=== PATIENT | male | born 1950 | race Caucasian/White ===

== ENCOUNTER 2023-12-28 10:32 | Emergency (ER) | payer MEDICARE, OTHER ==
--- OUTSIDE RECORDS SUMMARY | 2023-12-28 10:34 | XMS REPORT | Continuity of Care Document ---
Author Name Unknown Address [address] [place] [address] [facility] Address 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 Name Role Phone [place], [facility] Primary Car e Physician Piyush Santiago MD Attending Clinician [phone] NEVAEH COLLINS Attending Clinician Unavailab PIYUSH Story Attending Clinician Unavailable Doctor Unassigned, [place] Attending Clinician U Annika May Attending Clinician [phone] Irma-Mbayo_A_AH Attending Clinician Unavailable Irma-Mbayo_A_AH Admitting Clinician Unavailable Payers Payer Name Policy Type Policy Number Effective Date Expirati on Date Source [employer] (MEDICARE REPLACEMENT HMO) [id number] 2021 00:00:00 [facility] (MEDICARE REPLACEMENT/[place] GE - HMO) [id number] 0176-01-01 00:00:00 Allergies, Adverse Reactions, Alerts Allergy Name Allergy Type Status Severity Reaction(s) Onset Date Inactive Date Treating Clinician Comments Source NO KNOWN ALLERGIE S Drug Class Active [facility] Social History Social Habit Start Date Stop Date Quantity Comments Source Sexual orientation U [facility] Sex assigned at 1950 00:00:00 1950 00:00:00 [facility] Smoking Status Start Date Stop Date Source Tobacco smoking consumption unknown [facility] Medications Ordered Medication Name Filled Medication Name Start Date Stop Date Current Medication? Ordering Clinician Indication Dosage Frequency Signature (SIG) Comments Components Source meloxicam 15 mg tablet 6- 00:00: 00 Yes [id number] 15mg Take 1 tablet by mouth in the morning. [facility] meloxicam 15 mg tablet 05-01 00:00: 00 08-18 00:00 :00 No [id number] 15mg Take 1 tablet by mouth in the morning. [facility] amitriptyli ne 25 mg tablet 05-01 00:00: 00 07-30 04:59 :00 No [id number] 25mg Take 1 tablet by mouth at bedtime for 90 days. [facility] lidocain-me .salicyl-ca ps-menth (1ST MEDX-PATCH WITH LIDOCAINE) 4-20-0.025- 5 % PtMd 05-01 00:00: 00 06-30 04:59 :00 No [id number] 1{patch } Apply 1 Patch to area(s) in the morning and 1 Patch in the evening. Do all this for 60 days. [facility] Vital Signs Vital Name Observation Time Observation Value Comments S our Systolic blood pressure 2023-05-01 17:14:00 133 mm[Hg] [facility] Diastolic blood pressure 2023-05-01 17:14:00 76 mm[Hg] [facility] Heart rate 2023-05-01 17:14:00 74 /min [facility] Respiratory rate 2023-05-01 17:14:00 16 /min [facility] Body height 2023-05-01 17:14:00 172.7 cm [facility] Body weight 2023-05-01 17:14:00 49.714 kg [facility] BMI 2023-05-01 17:14:00 16.66 kg/m2 [facility] Oxygen saturation in Arterial blood by Pulse oximetry 2023-05-01 17:14:00 98 /min [facility] Procedures Procedure Date / Time Performed Performing Clinicia n Source ASSIGNMENT OF BENEFITS 2023-05-01 16:29:11 Docto r Unassigned, [place] [facility] Encounters Start Date/Time End Date/Time Encounter Type Admission Type Attending [facility] Care Facility Care Department Encounter ID Source 2023-08-19 00:00:00 2023-08-20 11:39:02 Piyush Chaney [facility] [id number] [facility] 2023-05-01 11:15:00 2023-05-01 12:00:00 Office Visit Piyush Santiago [facility] [id number] [facility] 2023-05-01 11:15:00 2023-05-01 11:15:00 Outpatient R PIYUSH SANTIAGO [facility] [id number] [facility] 2023-05-01 00:00:00 2023-05-01 00:00:00 Orders Only Doctor Unassigned, [place] [facility] [id number] [facility] 2023-02-06 17:00:00 2023-02-06 18:00:00 Arnol Babin [id number] 2021-09-22 03:05:00 2021-09-22 03:05:00 Outpatient DMG DMG [id number] [facility] 2021-09-22 00:00:00 2021-09-22 00:00:00 Outpatient DMG DMG [id number] [facility] 2021-02-12 08:00:00 2021-02-12 08:00:00 Outpatient DMG DMG [id number] [facility] 2019-04-29 07:17:00 2019-04-29 07:17:00 Outpatient Irma-Hamilton _A_AH VFP VFP [id number] [facility] e Notes Date/Time Note Provider Source 2023-08-20 11:15:43 Refill request routed to provider for review: HARPREET 05/01/23 NOV not scheduled, will send to PSS to schedule Last Ordered 05/01/23 Labs none listed Requested Prescriptions Pending Prescriptions Disp Refills meloxicam 15 mg tablet 30 tablet 2 Sig: Take 1 tablet by mouth in the morning. There is no refill protocol information for this order Recent Visits Date Type Provider Dept 05/01/23 Office Visit Piyush Santiago MD [facility] Showing recent visits within past 365 days and meeting all other requirements Future Appointments No visits were found meeting these conditions. Showing future appointments within next 365 days and meeting all other requirements No visits with results within 6 Month(s) from this visit. Latest known visit with results is: No results found for any previous visit. ICD-10-CM 1. Pain in joint, multiple sites M25.50 Please advise. Roseann Bailey RN 08/20/2023 11:15 AM T Roseann Bailey RN [facility] 2023-08-19 11:32:42 Ej Acosta is a 73 year old male [employer] calling about a refill on the meloxicam 15 mg tablet. Pls advise, thanks. [facility] [employer]
--- NOTE | 2023-12-28 11:34 | RAD REPORT ---
EXAMINATION: CT HEAD WITHOUT CONTRAST CT CERVICAL SPINE WITHOUT CONTRAST CLINICAL INDICATION: Head and neck injury status post fall. Head and neck pain TECHNIQUE: Axial CT images from the skull base to the vertex without intravenous contrast. Axial CT i mages through the cervical spine were obtained without intravenous contrast. Sagittal and coronal reformatted images were created from the data set. Coronal and sagittal reformatted images were creat ed from the data set. One or more of the following dose reduction techniques were used: Automated exposure control, adjustment of the mA and/or kV according to patient size, and/or iterative reconstr uction. Unless otherwise specified, incidental findings do not require dedicated imaging follow-up. [id number]. Comparison: none FINDINGS: Intracranial bleed not noted. Ventricles are normal in caliber. No significant hypodensity within the brain No extra-axial fluid collection. Opacification left mastoids No fracture or dislocation is seen involving the cervical spine. Spondylosis most marked at C5-C6 results in mild central and moderate bilateral foraminal stenosis. IMPRESSION: No acute intracranial abnormality noted Opacification left mastoids may indicate mastoiditis A cervical fracture is not seen. 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
--- NOTE | 2023-12-28 11:49 | RAD REPORT ---
Procedure: Chest Single View HISTORY: Chest pain COMPARISON: none FINDINGS: 3.3 cm lobulated opacity left upper hemithorax. It appears partially calcified. Bilateral pleural calcified plaques. Right lung appears clear of acute infiltrate. No significant pleural effusion noted. The heart is normal size. IMPRESSION: 3.3 cm lobulated opacity left upper hemithorax. It probably is a pleural plaque. Follow-up x-ray in o ne month recommended for reevaluation
[2023-12-28 11:54] LABS: Absolute Basophils 0.1 K/uL (0-0.5); Absolute Eosinophils 0.4 K/uL (0-0.5); Absolute Lymphocytes (CBC) 1.4 K/uL (0.7-4.9); Absolute Monocytes 0.5 K/uL (0.1-1.3); Absolute Neutrophil 4.7 K/uL (1.8-8.0); Basophils % 1.1 % (0-1.3); Eosinophils % 6.1 % (0-4.4); Hemoglobin 11.4 g/dL (13.6-17.9); Lymphocytes % 20.2 % (15.3-44.8); MCHC 32.6 g/dL (32.0-36.0); MCV 98.2 fL (80-100); MPV 8.8 fL (7.6-11.3); Neutrophils % 65.6 % (41.7-73.7); Platelets 271 thou/uL (152-406); RBC Red Blood Cell Count 3.56 M/uL (4.33-5.43); Red Cell Distribution Width 14.6 % (12.1-15.2)
[2023-12-28 12:02] LABS: PT Prothrombin Time 10.4 SECONDS (9.4-12.5); Protime INR 0.93
[2023-12-28 12:18] LABS: ALT/SGPT 88 U/L (16-61); AST/SGOT 222 U/L (15-37); Albumin 3.4 g/dL (3.4-5.0); Albumin/Globulin Ratio 0.9 (1.1-1.8); Alkaline Phosphatase 73 U/L (45-117); Anion Gap 7.8 mEq/L (5.0-15.0); BUN Blood Urea Nitrogen 25 mg/dL (7-18); Bicarbonate 30 mEq/L (21-32); Bilirubin Total 0.3 mg/dL (0.2-1.0); Globulin 3.9 g/dL (2.3-3.5); Glomerular Filtration Rate 92 ml/min (=/>90); Glucose Level 92 mg/dL (74-106); Magnesium 1.9 mg/dL (1.6-2.4); Potassium 3.8 mEq/L (3.5-5.1); Protein, Total 7.3 g/dL (6.4-8.2); Sodium Level 139 mEq/L (136-145); Troponin High Sensitivity 28.5 pg/mL (<58.9)
[2023-12-28 12:19] LABS: Bilirubin Direct < 0.2 mg/dL (0-0.2); Bilirubin Indirect, Calculated 0.1 mg/dL (0.2-0.8)
[2023-12-28] MEDS ORDERED: NA CHLORIDE 0.9% 1,000 ML ONE (12:23)
[2023-12-28 14:42] LABS: Specific Gravity 1.022 (1.005-1.030); Sqamous Epithelial None Seen /HPF (None Seen); Urine Bacteria None Seen /HPF (<20); Urine Bilirubin NEGATIVE (Negative); Urine Blood Negative (Negative); Urine Clarity Clear (Clear); Urine Color Light-Yellow (Yellow); Urine Culture Reflex Order NOT NEEDED; Urine Glucose NEGATIVE (Negative); Urine Ketones NEGATIVE (Negative); Urine Micro Reflex YN NO BILL MICROSCOPIC; Urine Mucus Slight /HPF (None Seen); Urine Nitrite NEGATIVE (Negative); Urine Protein TRACE (Negative); Urine RBC <5 /HPF (None Seen); Urine Urobilinogen Normal (Normal); Urine WBC None Seen /HPF (<5); Urine pH 5.5 (5.0-7.0)
--- NOTE | 2023-12-28 14:49 | RAD REPORT ---
EXAM: CT CHEST, ABDOMEN AND PELVIS WITH CONTRAST CLINICAL INDICATION: Chest and abdominal pain status post fall TECHNIQUE: CT chest, abdomen and pelvis was performed, with 100 cc Isovue-300 IV contrast, as per de partment protocol. Axial, sagittal and coronal reconstructions were obtained. One or more of the following dose reduction techniques were used: Automated exposure control, adjustment of the mA and/o r kV according to the patient size, and/or iterative reconstruction. Unless otherwise specified, incidental findings do not require dedicated imaging follow-up. [id number]. Oral contrast not given. This limits evaluation of the bowel. COMPARISON: None FINDINGS: A pulmonary contusion not seen. No mediastinal hematoma noted No pleural effusion.. No pericardial effusion 5 x 2 cm mass right lower lobe. Most of the mass are endobronchial.. Bilateral calcified pleural plaq ues. COPD Mediastinal and right hilar adenopathy. 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 Liver, spleen, pancreas, adrenals, kidneys and bladder do not demonstrate any acute traumatic injury. There is no evidence of diverticulitis Aorto biiliac graft is patent. Occlusion proximal celiac artery. Several small lucencies within the ilium bilaterally IMPRESSION: No acute traumatic injury involving chest, abdomen or pelvis seen... 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
--- NOTE | 2023-12-28 15:34 | EDPHYS ---
Physician Documentation [facility] Name: Demond Acosta Age: 73 yrs Sex: Male : 1950 Arrival Date: 12/28/2023 Time: 10:32 Bed 16 Private MD: ED Physician Aleks Mariscal HPI: 12/27 10:44 This 73 yrs old Male presents to ER via EMS with complaints of weakness, falls. sb4 11:27 patient states that he has not been feeling well for the past few weeks- feeling weak sb4 and falling. has been living with his sister. is currently on an unknown antibiotic for cellulitis of bilateral feet. he does report some right lower back pain but has no other complaints at this time. Historical: - Allergies: 10:53 No Known Allergies; rs5 - PMHx: 13:55 Hypertensive disorder; Hypercholesterolemia; blood clots; mb9 - PSHx: 13:55 stents; mb9 - Immunization history:: Adult Immunizations up to date. - Infectious Disease History:: Denies. - Social history:: Smoking status: Patient denies any tobacco usage or history of. ROS: 11:28 Constitutional: Negative for fever, chills, and weight loss, sb4 11:28 Back: Positive for pain at rest, of the right low back, 11:28 Neuro: Positive for weakness, 11:28 All other systems are negative, Exam: 11:29 Eyes: Extra-ocular motions intact. Periorbital areas with no swelling, redness, or sb4 edema. ENT: Mucous membranes moist. Cardiovascular: Regular rate and rhythm with a normal S1 and S2. Respiratory: No increased work of breathing, no retractions or nasal flaring. 11:29 Constitutional: The patient appears in no acute distress, alert, awake, unkempt, 11:29 Head/face: Noted is multiple small abrasions right scalp. 11:29 Skin: cellulitis, that is moderate, on the right foot and left foot, Vital Signs: 10:35 BP 120 / 71; Pulse 79; Resp 17; Pulse Ox 98% on R/A; rs5 12:19 Temp 97.8; Weight 70.31 kg; Height 5 ft. 8 in. ; mb9 12:20 BP 118 / 74; Pulse 54; Resp 15; Pulse Ox 97% on R/A; mb9 13:06 BP 134 / 60; Pulse 49; Resp 16; Pulse Ox 99% on R/A; mb9 14:37 BP 154 / 55; Pulse 48; Resp 18; Pulse Ox 98% on R/A; mb9 16:20 BP 157 / 60; Pulse 55; Resp 16; Pulse Ox 100% on R/A; rs5 12:19 Body Mass Index 23.57 (70.31 kg, 172.72 cm) mb9 MDM: 10:34 Medical Screening Exam initiated sb4 15:47 Data reviewed: vital signs, nurses notes, EMS record, lab test result(s), EKG, sb4 radiologic studies, I have discussed the patient's presentation/case with the attending Emergency Department Physician; and as a result, I will discharge patient. Consideration of Admission/Observation Escalation of care including admission/observation considered. Counseling: I had a detailed discussion with the patient and/or guardian regarding the historical points, exam findings, and any diagnostic results supporting the discharge/admit diagnosis, the presence of at least one elevated blood pressure reading (>120/80) during this emergency department visit, lab results, radiology results, the need for further work-up and treatment in the hospital, the need to transfer to another facility, [facility] does not immediately have the required specialist. Refusal of service: The patient/guardian displays adequate decision making capability and despite a detailed discussion of alternatives, benefits, risks, and consequences refuses: Admission to the hospital for further work-up and treatment. ED course: patient does not want to be admitted or transferred at this time. he wants to discuss everything with his sister and [facility] will provide him with all lab and imaging results as well as a disc with the imaging. 12/27 10:43 Order name: Basic Metabolic Panel; Complete Time: 12:20 sb4 12/27 10:43 Order name: CBC with Diff; Complete Time: 12:02 sb4 12/27 10:43 Order name: LFT's; Complete Time: 12:20 sb4 12/27 10:43 Order name: Magnesium; Complete Time: 12:20 sb4 12/27 10:43 Order name: PT-INR; Complete Time: 12:06 sb4 12/27 10:43 Order name: Troponin HS; Complete Time: 12:20 sb4 12/27 10:43 Order name: UAM; Complete Time: 14:43 sb4 12/27 10:43 Order name: CT Head C Spine; Complete Time: 11:35 sb4 12/27 10:43 Order name: XRAY Chest (1 view); Complete Time: 11:50 sb4 12/27 12:21 Order name: CT Chest, Abdomen, Pelvis - W/Contrast; Complete Time: 14:55 sb4 12/27 10:43 Order name: Cardiac monitoring; Complete Time: 11:48 sb4 12/27 10:43 Order name: EKG - Nurse/Tech; Complete Time: 11:48 sb4 12/27 10:43 Order name: IV Saline Lock; Complete Time: 11:48 sb4 12/27 10:43 Order name: Labs collected and sent; Complete Time: 11:36 sb4 12/27 10:43 Order name: O2 Per Protocol; Complete Time: 11:48 sb4 12/27 10:43 Order name: O2 Sat Monitoring; Complete Time: 11:48 sb4 EC:49 Rate is 59 beats/min. Rhythm is regular, Sinus bradycardia. Left axis deviation noted. sb4 [place] interval is normal at 176 msec. QRS interval is normal at 74 msec. QT interval is normal at 430 msec. No Q waves. T waves are Normal. No ST changes noted. Clinical impression: No evidence of ischemia. Interpreted by me. Reviewed by me. Administered Medications: 12:28 Drug: NS 0.9% IV 1000 ml IV at 1 bolus Per protocol; to be given as a bolus over 60 mb9 minutes Route: IV; Rate: 1 bolus; Site: right antecubital; 14:37 Follow up: Response: No adverse reaction; IV Status: Completed infusion mb9 Disposition Summary: 12/28/23 15:33 Discharge Ordered Notes: Location: Home sb4 Problem: an ongoing problem sb4 Symptoms: are unchanged sb4 Condition: Stable sb4 Diagnosis - History of falling sb4 - Weakness sb4 - Right lung, lower lobe mass sb4 Followup: sb4 - With: Emergency Department - When: As needed - Reason: Trouble breathing, Worsening of condition Followup: sb4 - With: Private Physician - When: 2 - 3 days - Reason: Further diagnostic work-up, Recheck today's complaints, Re-evaluation by your physician Discharge Instructions: - Discharge Summary Sheet sb4 - Fall Prevention in the Home, Adult sb4 - Weakness, Thfu-pt-Ajzj sb4 - Lung Mass sb4 Forms: - Patient Portal Instructions sb4 - Leadership Thank You Letter sb4 Signatures: Dispatcher [employer] EDRosario Beck, SANDRA FLORES sb4 Blessing Fernández, RN RN mb9 Anand Shultz, RN RN rs5 Corrections: (The following items were deleted from the chart) 10:44 10:44 BASIC METABOLIC PANEL+C.LAB.BRZ ordered. EDMS EDMS 10:44 10:44 CBC+H.LAB.BRZ ordered. EDMS EDMS 10:44 10:44 HEPATIC FUNCTION+C.LAB.BRZ ordered. EDMS EDMS 10:44 10:44 MAGNESIUM+C.LAB.BRZ ordered. EDMS EDMS 10:44 10:44 PROTIME (+INR)+COAG.LAB.BRZ ordered. EDMS EDMS 10:44 10:44 Troponin High Sensitivity+C.LAB.BRZ ordered. EDMS EDMS 10:44 10:44 Urinalysis W/Microscopic+U.LAB.BRZ ordered. EDMS EDMS 10:44 10:44 Chest Single View+RAD.RAD.BRZ ordered. EDMS EDMS 10:46 10:44 This 73 yrs old Male presents to ER via Unassigned with complaints of weakness, sb4 falls. sb4 10:46 10:45 This 73 yrs old Male presents to ER via EMS with unknown complaint. sb4 sb4 12:21 12:21 Chest Abdomen Pelvis W Con+CT.RAD.BRZ ordered. EDMS EDMS
--- NOTE | 2023-12-28 15:34 | ER ---
Nurse's Notes [facility] Name: Demond Acosta Age: 73 yrs Sex: Male : 1950 Arrival Date: 12/28/2023 Time: 10:32 Bed 16 Private MD: Diagnosis: History of falling;Weakness;Right lung, lower lobe mass Presentation: 12/27 10:35 Chief complaint: EMS states: pt toned out EMS for generalized weakness and multiple rs5 falls experienced this past week, systolic bp in 90's on arrival. 10:35 Coronavirus screen: At this time, the client does not indicate any symptoms associated rs5 with coronavirus-19. Ebola Screen: No symptoms or risks identified at this time. Initial Sepsis Screen: Does the patient meet any 2 criteria? No. Patient's initial sepsis screen is negative. Does the patient have a suspected source of infection? No. Patient's initial sepsis screen is negative. Risk Assessment: Do you want to hurt yourself or someone else? Patient reports no desire to harm self or others. Onset of symptoms was December 28, 2023. 10:35 Method Of Arrival: EMS: [facility] rs5 10:35 Acuity: ASHLEY 3 rs5 Historical: - Allergies: 10:53 No Known Allergies; rs5 - PMHx: 13:55 Hypertensive disorder; Hypercholesterolemia; blood clots; mb9 - PSHx: 13:55 stents; mb9 - Immunization history:: Adult Immunizations up to date. - Infectious Disease History:: Denies. - Social history:: Smoking status: Patient denies any tobacco usage or history of. Screenin:[facility] ED Fall Risk Assessment (Adult) History of falling in the last 3 months, mb9 including since admission No falls in past 3 months (0 pts) Confusion or Disorientation No (0 pts) Intoxicated or Sedated No (0 pts) Impaired Gait No (0 pts) Mobility Assist Device Used No (0 pt) Altered Elimination No (0 pt) Score/Fall Risk Level 0 - 2 = Low Risk Oriented to surroundings, Maintained a safe environment, Educated pt \T\ family on fall prevention, incl call for assistance when getting out of bed. Abuse screen: Denies threats or abuse. Nutritional screening: No deficits noted. Tuberculosis screening: No symptoms or risk factors identified. Assessment: 12:18 General: Appears in no apparent distress. Behavior is calm, cooperative. Pain: mb9 Complains of pain in entire body Quality of pain is described as throbbing, Pain began 2-3 days ago. Neuro: Josue Agitation-Sedation Scale (RASS): 0 - Alert and Calm Level of Consciousness is awake, alert, obeys commands, Oriented to person, place, time, situation, Appropriate for age Reports weakness in right arm, left arm, right leg and left leg since 7 days. Cardiovascular: Heart tones S1 S2 present Patient's skin is warm and dry. Respiratory: Airway is patent Respiratory effort is even, unlabored, Respiratory pattern is regular, symmetrical, Breath sounds are clear bilaterally. GI: No signs and/or symptoms were reported involving the gastrointestinal system. : No signs and/or symptoms were reported regarding the genitourinary system. EENT: No signs and/or symptoms were reported regarding the EENT system. Derm: Skin is pink, warm \T\ dry. Musculoskeletal: Range of motion: intact in all extremities. 13:50 Reassessment: No changes from previously documented assessment. Patient and/or family mb9 updated on plan of care and expected duration. Pain level reassessed. Patient is alert, oriented x 3, equal unlabored respirations, skin warm/dry/pink. 14:37 Reassessment: No changes from previously documented assessment. Patient and/or family mb9 updated on plan of care and expected duration. Pain level reassessed. Patient is alert, oriented x 3, equal unlabored respirations, skin warm/dry/pink. 15:49 Reassessment: D/C pending ride home. mb9 16:21 Reassessment: No changes from previously documented assessment. Patient and/or family mb9 updated on plan of care and expected duration. Pain level reassessed. Patient is alert, oriented x 3, equal unlabored respirations, skin warm/dry/pink. Vital Signs: 10:35 BP 120 / 71; Pulse 79; Resp 17; Pulse Ox 98% on R/A; rs5 12:19 Temp 97.8; Weight 70.31 kg; Height 5 ft. 8 in. ; mb9 12:20 BP 118 / 74; Pulse 54; Resp 15; Pulse Ox 97% on R/A; mb9 13:06 BP 134 / 60; Pulse 49; Resp 16; Pulse Ox 99% on R/A; mb9 14:37 BP 154 / 55; Pulse 48; Resp 18; Pulse Ox 98% on R/A; mb9 16:20 BP 157 / 60; Pulse 55; Resp 16; Pulse Ox 100% on R/A; rs5 12:19 Body Mass Index 23.57 (70.31 kg, 172.72 cm) mb9 ED Course: 10:34 Patient arrived in ED. sb4 10:34 Rosario Monreal PA-C is PHCP. sb4 10:34 Aleks Mariscal MD is Attending Physician. sb4 10:49 Anand Shultz, RN is Primary Nurse. rs5 10:53 Triage completed. rs5 11:02 CT Head C Spine In Process Unspecified. EDMS 11:19 Sister Juliann called to check on patient/ She asks to be called with any questions or eb concerns/ her cell is [phone]. 11:20 XRAY Chest (1 view) In Process Unspecified. EDMS 11:36 Basic Metabolic Panel Sent. em1 11:36 CBC with Diff Sent. em1 11:36 LFT's Sent. em1 11:36 Magnesium Sent. em1 11:36 PT-INR Sent. em1 11:36 Troponin HS Sent. em1 11:46 Bed in low position. Call light in reach. Side rails up X 1. Provided Education on: mb9 press call light if needing anything. Client placed on continuous cardiac and pulse oximetry monitoring. NIBP monitoring applied. court recording monitor on. 11:48 EKG done, by ED staff, reviewed by Anand Shultz RN. mb9 11:49 Maintain EMS IV. Dressing intact. Good blood return noted. Site clean \T\ dry. Gauge \T\ mb 9 site: 18g right AC. Flushed with 10 mL NS. 11:50 Primary Nurse role handed off by Anand Shultz, MINO mb9 11:50 Blessing Fernández, MINO is Primary Nurse. mb9 11:50 Arm band placed on. mb9 13:[address] via stretcher. mb9 13:56 No provider procedures requiring assistance completed. mb9 14:14 CT Chest, Abdomen, Pelvis - W/Contrast In Process Unspecified. EDMS 16:21 IV discontinued, intact, bleeding controlled, No redness/swelling at site. Pressure mb9 dressing applied. Administered Medications: 12:28 Drug: NS 0.9% IV 1000 ml IV at 1 bolus Per protocol; to be given as a bolus over 60 mb9 minutes Route: IV; Rate: 1 bolus; Site: right antecubital; 14:37 Follow up: Response: No adverse reaction; IV Status: Completed infusion mb9 Medication: 11:49 VIS not applicable for this client. mb9 Outcome: 15:33 Discharge ordered by MD. ramsay 16:21 Discharged to home via wheelchair, with family, mb9 16:21 Condition: stable 16:21 Discharge instructions given to patient, family, Instructed on discharge instructions, follow up and referral plans. Demonstrated understanding of instructions, follow-up care, 16:22 Patient left the ED. mb9 Signatures: Dispatcher [employer] Jann Melendez emElizabeth Pacheco Sophia, PA-C PA-C sb4 Blessing Fernández RN RN mb9 Anand Shultz RN RN rs5 Corrections: (The following items were deleted from the chart) 19:29 15:22 BP 157 / 60; Pulse 55bpm; Resp 16bpm; Pulse Ox 100% RA; mb9 rs5
[2023-12-28 18:57] VITALS: TEMP 97.8
[2023-12-28 19:01] VITALS: BP 157/60; O2SAT 100
--- NOTE | 2023-12-31 13:00 | EKG ---
Test Date: 2023-12-28 Test Time: 11:37:02 President: MARCO ANTONIO MEASUREMENT RESULTS: Intervals: Rate: 59 NC: 176 QRSD: 74 QT: 430 QTc: 425 Dequincy: P: 72 NC: 176 QRS: -31 T: 88 INTERPRETIVE STATEMENTS: Sinus bradycardia Left axis deviation Anterior infarct, age undetermined Abnormal ECG Compared to ECG 11/14/2013 01:11:13 Left-axis deviation now present Myocardial infarct finding now present Sinus rhythm no longer present Electronically Signed On 12-31-23 12:52:29 CDT by Dallin Trevizo
== END 2023-12-28 16:22 | disposition home or self-care (01) ==
LOC: ER 10:32
DX: R53.1 Weakness (principal); Z91.81 History of falling; R91.8 Other nonspecific abnormal finding of lung field; I10 Essential (primary) hypertension
CPT/HCPCS: 96361; 93005; 85025; 81001; 80048; 36415; 83735; 85610; 80076; 84484; 70450; 72125; 71260; 74177; 71045; 96360; 99285; J7030

== ENCOUNTER 2024-01-17 06:29 | Day surgery (SDC) | payer MEDICARE ==
[2024-01-17] MEDS ORDERED: Phenylephrine HCl 10 MG/ML 1 ML VIAL ONE (06:49)
[2024-01-17] MEDS ORDERED: GLYCOPYRROLATE 0.2 MG/ML SYR ONE ×2 (06:50→07:43)
[2024-01-17] MEDS ORDERED: LIDOCAINE 4% TOP SOLUTION ONE (06:50)
[2024-01-17] MEDS: Ringers Lactate 1,000 ML IV ONE (07:05)
[2024-01-17] MEDS ORDERED: FENTANYL CITR 100 MCG/2 ML ONE (07:43)
[2024-01-17] MEDS ORDERED: propofoL 200 MG/20 ML VIAL IV ONE (07:43)
[2024-01-17] MEDS ORDERED: LIDOCAINE 1% MPF 5 ML VIAL ONE (07:44)
[2024-01-17] MEDS: LIDOCAINE 4% TOP SOLUTION ONE (08:04)
[2024-01-17] MEDS: LIDOCAINE 1% MPF 30 ML VIAL ONE (08:07)
--- NOTE | 2024-01-17 08:21 | P.OP ---
Date of Service: 01/17/24 (Bronchoscopy with RLL lung B) Findings and Operative Technique Pt is 74 yrs of age evaluated for RLL lung mass. heavy smoker. Very debilitated After obtaining an informed consent from patient, patient was medicated by anesthesia Finding Normal Bronch no endobronchial mass visible. slight thickening of mucosa RLL/ Multiple BX were obatianed from RLL Pt tolerated the procedure well. did nto experience hypotension, Hypoxemia.Left lung normal
[2024-01-17 09:54] VITALS: BP 136/65; O2SAT 94
--- NOTE | 2024-01-17 10:05 | RAD REPORT ---
EXAM: Fluoroscopy use, Fluoroscopy <1 Hour HISTORY: BRONCH COMPARISON: None FINDINGS: Multiple images were sent to PACS, during a fluoroscopically guided procedure. No radiologi st was involved in protocoling or performance of the study, and no radiologist was present for the duration of the procedure. No interpretation of the saved images will be provided. Total fluoroscopy time: 24 seconds. IMPRESSION: Documentation of fluoroscopy use as above.
[2024-01-17 10:22] VITALS: TEMP 97
== END 2024-01-17 09:00 | disposition home or self-care (01) ==
LOC: OR 06:29
PROVIDERS: ATTEND Internal Medicine Sleep Medicine
PROC: 0BDF8ZX Extraction of Right Lower Lung Lobe, Via Natural or Artificial Opening Endoscopic, Diagnostic (ICD-10-PCS; principal; 2024-01-17 08:00)
DX: R91.8 Other nonspecific abnormal finding of lung field (principal); F17.210 Nicotine dependence, cigarettes, uncomplicated
CPT/HCPCS: 88108; 88305 ×2; 87015; 87206; 87116; 87102; 31625; J2704; J2003 ×2; J2371; J3010; J7120; 76000

== ENCOUNTER 2024-01-31 07:24 | Inpatient (IN) | payer MEDICARE ==
[2024-01-31] MEDS: NA CHLORIDE 0.9% 1,000 ML ONE (07:40)
[2024-01-31 08:47] LABS: MPV 8.5 fL (7.6-11.3); Platelets 408 thou/uL (152-406)
[2024-01-31 08:51] LABS: PT Prothrombin Time 11.9 SECONDS (9.4-12.5); PTT, Activated Partial Thromb 31.4 SECONDS (24.3-36.9); Protime INR 1.06
[2024-01-31] MEDS: NALOXONE HCL 2 MG/2 ML VIAL ONE (08:54)
[2024-01-31] MEDS: MIDAZOLAM HCL 2 MG/2 ML INJ ONE (08:54)
[2024-01-31] MEDS: FENTANYL CITR 100 MCG/2 ML ONE (08:54)
--- NOTE | 2024-01-31 10:44 | RAD REPORT ---
EXAMINATION: ONE VIEW CHEST XR CLINICAL INDICATION: Male, 74 years old.,S/O LUNG BIOPSY TECHNIQUE: Frontal chest projection is submitted. Examination is limited by patient positioning and t echnique. COMPARISON: Images of CT-guided lung biopsy of the same day FINDINGS: Patchy right central to basal opacification with a small effusion. Left lung is clear. Small right b nakul pneumothorax with 5 mm pleural separation. This is not significantly increased compared to the scans obtained at the end of the procedure, allowing for differences in technique. The heart is veronica l in size. Mediastinal contours are unremarkable. IMPRESSION: Small right basilar pneumothorax following right lung biopsy, appears to be stable. Continued imaging follow-up recommended.
[2024-01-31 11:18] VITALS: BMI 15.2
--- NOTE | 2024-01-31 11:52 | RAD REPORT ---
EXAMINATION: ONE VIEW CHEST XR CLINICAL INDICATION: Male, 74 years old.,post lung biopsy TECHNIQUE: Frontal chest projection is submitted. Examination is limited by patient positioning and t echnique. COMPARISON: Same date chest radiograph at 10:25 AM FINDINGS: Right basal and central opacification again seen. Pleural effusion now tracks along the right minor f issure. Interval increase in size of right-sided pneumothorax, now with 2.5 cm of apical pleural separation. Left lung remains clear. The heart is normal in size. Mediastinal contours are unremarkab le. IMPRESSION: Progressive right-sided pneumothorax as above.
--- NOTE | 2024-01-31 13:01 | RAD REPORT ---
EXAMINATION: ONE VIEW CHEST XR CLINICAL INDICATION: Male, 74 years old.,post lung biopsy TECHNIQUE: Frontal chest projection is submitted. Examination is limited by patient positioning and t echnique. COMPARISON: Chest radiographs of earlier the same day at 1135 hours and 1025 hours FINDINGS: Apparent interval reduction in size of the right apical pneumothorax, although one CM of lateral pleu ral separation still persists. Patchy right mid to lower lung airspace opacification with effusion tracking along the right minor fissure again seen. Some rightward shift of the trachea as noted. Lef t lung remains clear. The heart is normal in size. Mediastinal contours are otherwise unchanged. IMPRESSION: Suggestion of mild interval decrease in size of the right sided pneumothorax, with residual 1 cm late ral pleural separation. A degree of rightward tracheal shift suggests volume loss on the right.
--- NOTE | 2024-01-31 14:52 | RAD REPORT ---
EXAMINATION: ONE VIEW CHEST XR CLINICAL INDICATION: Male, 74 years old.,post lung bx TECHNIQUE: Frontal chest projection is submitted. Examination is limited by patient positioning and t echnique. COMPARISON: Prior chest radiographs of earlier the same day FINDINGS: Right apical pneumothorax is stable compared to the radiograph obtained at 11:35 AM. Right lung opaci fication and pleural effusion are stable allowing for changes in patient positioning. Left lung remains clear. The heart is normal in size. Mediastinal contours are unchanged, again with some right stein tracheal shift. IMPRESSION: Stable right apical pneumothorax allowing for changes in patient positioning. I have discussed the ca se with the on-call surgeon and hospitalist, and the patient will be kept under observation.
[2024-01-31] MEDS ORDERED: ALBUTEROL 2.5 MG/3 ML NEB SOL NEB PRN (16:18)
--- NOTE | 2024-01-31 16:34 | P.HP ---
Certification for Inpatient Patient admitted to: Observation With expected LOS: <2 Midnights Patient will require the following post-hospital care: None Practitioner: I am a practitioner with admitting privileges, knowledge of patient current condition, hospital course, and medical plan of care. Services: Services provided to patient in accordance with Admission requirements found in Title 42 Section 412.3 of the Code of Federal Regulations Patient History Date of Service: 01/31/24 Reason for admission: Pneumothorax History of Present Illness: 74-year-old male with history of COPD, neuropathy presented to day surgery for a fine-needle aspiration/right lung biopsy today. He underwent a CT-guided lung biopsy and subsequently developed a small right pneumothorax. Chest x-rays were repeated, pneumothorax remained stable but patient will be observed in hospital overnight with repeat chest x-ray in the morning to ensure stability before discharge. Allergies No Known Allergies Allergy (Verified 01/14/24 15:35) Home Medications: Aspirin Chewable [Aspirin Chewable*] 81 mg PO BEDTIME 01/14/24 Fluticasone/Umeclidin/Vilanter [Trelegy Ellipta 100-62.5-25] 1 each IH DAILY 01/14/24 Gabapentin 800 mg PO BEDTIME 01/14/24 Tramadol HCl [Ultram] 50 mg PO BEDTIME 01/14/24 Trazodone HCl 100 mg PO BEDTIME 01/14/24 - Past Medical/Surgical History -: COPD -: Neuropathy - Social History Smoking Status: Former smoker Alcohol use: No CD- Drugs: No Caffeine use: Yes Place of Residence: Home Review of Systems 10-point ROS is otherwise unremarkable Cardiovascular: Chest Pain Physical Examination - Vital Signs Temperature: 97.7 F Blood Pressure: 150/70 Pulse: 96 Respirations: 20 - Physical Exam General: Alert, In no apparent distress, Oriented x3 HEENT: Atraumatic, PERRLA, Mucous membr. moist/pink Neck: Supple, 2+ carotid pulse no bruit, No LAD Respiratory: Normal air movement, Diminished (Diminished on the right) Cardiovascular: Regular rate/rhythm, Normal S1 S2 Gastrointestinal: Normal bowel sounds, No tenderness Musculoskeletal: No tenderness Integumentary: No rashes Neurological: Normal gait, Normal speech, Normal strength at 5/5 x4 extr, Normal tone, Normal affect - Studies Laboratory Data (last 24 hrs) 11/22/24 11/22/24 08:37 08:37 Plt Count 408 H PT 11.9 INR 1.06 APTT 31.4 Assessment and Plan - Plan Assessment: Small right pneumothorax after CT-guided lung biopsy Neuropathy COPD Plan: Small right pneumothorax after CT-guided lung biopsy Keep on oxygen overnight Continuous pulse ox Repeat chest x-ray in the morning Low threshold for repeat chest x-ray overnight if patient develops worsening shortness of breath Neuropathy COPD Continue home medications As needed nebulizer treatments DVT PPX: Lovenox Code status: Full Discharge Plan: Home Plan to discharge in: 24 Hours - Advance Directives Does patient have a Living Will: No Does patient have a Durable POA for Healthcare: No - Code Status/Comfort Care Code Status Assessed: Yes (Full code) Critical Care: No Time Spent Managing Pts Care (In Minutes): 52
[2024-01-31] MEDS: HYDROCODONE/APAP 5/325 MG TAB PO PRN (23:54)
--- NOTE | 2024-02-01 08:32 | RAD REPORT ---
EXAMINATION: ONE VIEW CHEST XR CLINICAL INDICATION: Male, 74 years old.,eval pneumothorax TECHNIQUE: Frontal chest projection is submitted. Examination is limited by patient positioning and t echnique. COMPARISON: 01/31/2024 chest radiographs FINDINGS: The lungs show similar degree of inflation right basilar airspace opacification, most suggestive of c ombination of known masslike opacity and evolving effusion. No residual pneumothorax appreciated. Improvement of aeration in the right upper lung. The heart is normal in size. Mediastinal contours ar e within normal, with improvement of rightward tracheal shift. IMPRESSION: No residual pneumothorax. Otherwise stable right pleural-parenchymal opacification as above.
--- NOTE | 2024-02-01 10:49 | P.CNS ---
Date of Consult: 02/08/24 Reason for Consult: Abnormal chest x-ray chest x-ray Chief Complaint: Pneumothorax History of Present Illness: Kidney 74 years of age with a history of right sided lung mass diagnostic breast bronchoscopy was scheduled for fine-needle biopsy of his right lung procedure he developed a small pneumothorax which is now resolved however he does develop active pleural effusion some atelectasis on the right side is any chest pain fever or hemoptysis is of burning in his feet Allergies No Known Allergies Allergy (Verified 01/14/24 15:35) Home Medications: Gabapentin 800 mg PO BEDTIME 01/14/24 Tramadol HCl [Ultram] 50 mg PO BEDTIME 01/14/24 Trazodone HCl 100 mg PO BEDTIME 01/14/24 - Past Medical/Surgical History -: COPD -: Neuropathy -: CABG -: bypass BLE,ileo-femoral - Social History Smoking Status: Former smoker Alcohol use: No CD- Drugs: No Caffeine use: Yes Place of Residence: Home Review of Systems 10-point ROS is otherwise unremarkable Physical Examination Temp Pulse Resp BP Pulse Ox 97.2 F 90 16 117/70 90 L 02/01/24 08:00 02/01/24 08:00 02/01/24 08:00 02/01/24 08:00 02/01/24 08:00 General: Alert, Oriented x3 Respiratory: Clear to auscultation bilaterally, Diminished (Wrist on the right side) Cardiovascular: No edema, Normal pulses, Regular rate/rhythm - Problems (1) Abnormal chest x-ray Current Visit: Yes Status: Acute Plan: 74 years of age admitted for a biopsy of his right lung pneumothorax I suspect some bleeding or his procedure his chest x-ray looks much worse although he denies any chest pain or hemoptysis have ordered some lab work bilateral decubitus of the chest and PA and lateral chest x-ray continue with scheduled bronchodilators and steroid numerous medications for his neuropathy patient is mildly hypoxic start incentive spirometry patient is hypoxic requiring 5 L of nasal cannula continue to monitor
[2024-02-01] MEDS: ARFORMOTEROL TARTRATE 15 MCG/2 ML VIAL.NEB NEB SCH (10:50)
[2024-02-01] MEDS ORDERED: ACETAMINOPHEN 325 MG TABLET PO PRN (11:23)
[2024-02-01] MEDS: predniSONE 20 MG TAB PO SCH (11:34)
[2024-02-01 11:54] LABS: Hematocrit 35.6 % (39.6-49.0); Hemoglobin 11.4 g/dL (13.6-17.9); MCH 30.1 pg (27.0-35.0); MCV 94.1 fL (80-100); MPV 8.5 fL (7.6-11.3); Platelets 414 thou/uL (152-406); RBC Red Blood Cell Count 3.78 M/uL (4.33-5.43); Red Cell Distribution Width 14.4 % (12.1-15.2)
[2024-02-01 12:12] LABS: AST/SGOT 27 U/L (15-37); Albumin/Globulin Ratio 0.5 (1.1-1.8); Alkaline Phosphatase 93 U/L (45-117); Anion Gap 9.3 mEq/L (5.0-15.0); BUN Blood Urea Nitrogen 15 mg/dL (7-18); Bicarbonate 28 mEq/L (21-32); Bilirubin Total 0.5 mg/dL (0.2-1.0); Glomerular Filtration Rate 93 ml/min (=/>90); Glucose Level 141 mg/dL (74-106); Potassium 3.3 mEq/L (3.5-5.1); Sodium Level 134 mEq/L (136-145)
[2024-02-01 12:13] LABS: ALT/SGPT < 14 U/L (16-61)
[2024-02-01] MEDS: POTASSIUM CL SA 10 MEQ TAB PO ONE (12:45)
--- NOTE | 2024-02-01 13:25 | RAD REPORT ---
EXAMINATION: TWO VIEW CHEST XR CLINICAL INDICATION: Male, 74 years old. [facility] Changes on single view TECHNIQUE: 2 view radiographs of the chest were performed. COMPARISON: Chest radiograph of earlier the same day at 5:57 AM, and dating back to the previous day starting at 10:25 AM FINDINGS: Persistent right basilar pleural-parenchymal opacification. Questionable right apical pneumothorax se en only on the single image (during expiration), with 1.5 cm pleural separation, improved from 1.8 cm along the 01/31/2024 radiographs performed at 1433 hours. The heart is normal in size. Mediastinal contours are unremarkable. IMPRESSION: Questionable right apical pneumothorax seen only on the single expiratory image, improved in size com pared to radiographs of the previous day.
--- NOTE | 2024-02-01 13:26 | RAD REPORT ---
EXAMINATION: Chest Lateral Decubitus CLINICAL INDICATION: Male, 74 years old. R sided effusion ? RIGHT TECHNIQUE: 2 view decubitus radiographs of the chest were performed. COMPARISON: Chest radiographs 02/01/2024 and 01/31/2024 FINDINGS: Decubitus views of the chest demonstrate layering of the known right pleural effusion underlying righ t basilar opacification also noted.. No evidence of loculation. No appreciable pneumothorax. IMPRESSION: Layering right pleural effusion with underlying basilar opacification. No appreciable pneumothorax.
[2024-02-01] MEDS: Levofloxacin 750mg IV 750 MG/150 ML BAG IV SCH (14:12)
--- NOTE | 2024-02-01 14:37 | P.PN ---
Date of Service: 02/01/24 Subjective: ROS: 10 point ROS as noted above, otherwise negative Physical exam GEN: Alert, oriented, NAD HEENT: Normal conjunctiva, sclera anicteric CV: Regular rate and rhythm, no edema Pulm: Nonlabored respirations on room air ABD: Soft, nontender, nondistended MSK: No joint tenderness Integumentary: No rashes Neuro: Normal speech, normal affect Vitals reviewed Problem List VTE: Code: Dispo: Time Spent Managing Pts Care (In Minutes): 35
--- NOTE | 2024-02-01 14:38 | P.PN ---
Date of Service: 02/01/24 Subjective: Still generalized pain, dyspnea ROS: 10 point ROS as noted above, otherwise negative Physical exam GEN: Alert, oriented, NAD, frail HEENT: Normal conjunctiva, sclera anicteric CV: Regular rate and rhythm, no edema Pulm: Nonlabored respirations on nasal cannula, diminished breath sounds on the right ABD: Soft, nontender, nondistended MSK: No joint tenderness Integumentary: No rashes Neuro: Normal speech, normal affect Vitals reviewed Assessment: Small right pneumothorax after CT-guided lung biopsy Layering right pleural effusion Neuropathy COPD Plan: Small right pneumothorax after CT-guided lung biopsy Layering right pleural effusion Keep on oxygen, wean as tolerated, daily room air O2 Continuous pulse ox Repeat chest x-ray in the morning Low threshold for repeat chest x-ray overnight if patient develops worsening shortness of breath Following with pulmonology who have started on prednisone, levofloxacin Repeat CBC in the morning Neuropathy COPD Continue home medications As needed nebulizer treatments DVT PPX: Lovenox Code status: Full Discharge Plan: Home Time Spent Managing Pts Care (In Minutes): 35
--- NOTE | 2024-02-01 16:48 | RAD REPORT ---
EXAMINATION: Lung Biopsy Perc w/CT INDICATION: right lung mass Pre-procedure diagnosis: Right lung mass Post-procedure diagnosis: Same as above. COMPLICATIONS: No immediate complications. PROCEDURE DETAILS: Consent: Informed consent for the procedure was obtained following discussion of the risks, benefits and alternatives with the patient. Time-out was performed prior to the procedure. Sedation: Moderate sedation (conscious sedation) Administered by: Nurse, or other independent traine d observer, with level of consciousness and vital signs continuously monitored. Total sedation administered: 0.75 mg Versed and 100 mcg Fentanyl. Total intra-service sedation time: 15 minutes. Biopsy: The area was prepped and draped in the usual sterile fashion. Initial scanning revealed more extensive opacification in the right lower lobe, which may relate to bronchial obstructive changes related to the suspected mass, or worsening pneumonia. A layering pleural effusion was seen anteriorl y. Upon a brief discussion of these findings with Dr. Kan, decision was made to proceed with the biopsy. Local anesthesia was administered. Under CT guidance, an 18 gauge biopsy needle was advan francoise to the target most dense mass, in the region of the previously visualized abnormality, and biopsy was performed. Number of specimens/passes: 3 Additional sampling description: None. Preliminary assessment of sample adequacy: Adequate Slab images obtained prior to needle removal demonstrated a mild posterior/basal pneumothorax. A slurry composed of Surgifoam and sterile saline was administered through the biopsy needle to seal the tract. The biopsy needle was then removed and a sterile dressing was applied. Estimated blood loss: Less than 10 mL. IMPRESSION: Technically successful CT-guided biopsy of right lung mass as above. At the termination of the procedure, a mild right posterior/basal pneumothorax was observed.
[2024-02-01] MEDS: GABAPENTIN 400 MG CAP PO SCH (20:34)
[2024-02-01] MEDS: TRAMADOL HCL 50 MG TAB PO SCH (20:34)
[2024-02-01] MEDS: TRAZODONE 50 MG TABLET PO SCH (20:34)
[2024-02-02 05:59] LABS: Hematocrit 34.5 % (39.6-49.0); Hemoglobin 11.5 g/dL (13.6-17.9); MCH 31.1 pg (27.0-35.0); MCHC 33.5 g/dL (32.0-36.0); MCV 92.9 fL (80-100); MPV 9.4 fL (7.6-11.3); Platelets 415 thou/uL (152-406); RBC Red Blood Cell Count 3.71 M/uL (4.33-5.43); Red Cell Distribution Width 14.2 % (12.1-15.2)
--- NOTE | 2024-02-02 07:26 | RAD REPORT ---
EXAMINATION: ONE VIEW CHEST XR CLINICAL INDICATION: eval pleural effusion/pneumothorax TECHNIQUE: Frontal chest projection is submitted. Examination is limited by patient positioning and t echnique. COMPARISON: 02/01/2024 FINDINGS: The left lung appears emphysematous but is clear. Right pleural effusion is [id number] in size and appears unchanged. The heart is upper limit of normal in size. No measurable pneumothorax.
--- NOTE | 2024-02-02 09:41 | P.PN ---
Subjective Date of Service: 02/02/24 Chief Complaint: Lung mass Subjective: Improving (Patient is improving doing well denies any chest pain cough sputum or hemoptysis) Review of Systems General: Weakness Respiratory: Shortness of Breath Physical Examination - Vital Signs Temperature: 97.8 F Blood Pressure: 123/67 Pulse: 83 Respirations: 16 Pulse Ox (%): 97 - Physical Exam General: Alert, Oriented x3 Respiratory: Clear to auscultation bilaterally, Diminished Cardiovascular: No edema, Regular rate/rhythm - Studies Laboratory Data (last 24 hrs) 02/02/24 02/01/24 02/01/24 05:18 11:45 11:45 WBC 16.50 H 16.50 H Hgb 11.5 L 11.4 L Hct 34.5 L 35.6 L Plt Count 415 H 414 H Sodium 134 L Potassium 3.3 L BUN 15 Creatinine 0.77 Glucose 141 H Total Bilirubin 0.5 AST 27 ALT < 14 L Alkaline Phosphatase 93 Assessment And Plan - Current Problems (Diagnosis) (1) Abnormal chest x-ray Current Visit: Yes Status: Acute Plan: Patient is doing better his pneumothorax has resolved atelectasis is also resolved he does have this right basilar mass labs chemistries reviewed white count is still elevated continue with levofloxacin upon discharge wait for home O2 has underlying COPD continue with steroids on discharge 10 mg twice a day for a week (2) Neuropathy Current Visit: Yes Status: Acute Plan: Patient has severe neuropathy of the feet and does take gabapentin 3 times a day
[2024-02-02] MEDS: GABAPENTIN 400 MG CAP PO SCH (09:59)
[2024-02-02 11:36] VITALS: O2SAT 93
[2024-02-02 16:58] VITALS: BP 125/70; TEMP 98.8
--- NOTE | 2024-02-02 17:09 | P.DS ---
Admission Date: 02/01/24 Discharge Date: 02/02/24 Disposition: ROUTINE DISCHARGE Discharge Condition: GOOD Reason for Admission: Lung mass Brief History of Present Illness: 74-year-old male with history of COPD, neuropathy presented to day surgery for a fine-needle aspiration/right lung biopsy today. He underwent a CT-guided lung biopsy and subsequently developed a small right pneumothorax. Chest x-rays were repeated, pneumothorax remained stable but patient will be observed in hospital overnight with repeat chest x-ray in the morning to ensure stability before discharge. Hospital Course: Assessment: Small right pneumothorax after CT-guided lung biopsy Layering right pleural effusion Neuropathy COPD Patient presented to the hospital for an outpatient CT-guided lung biopsy, he had a pneumothorax as a complication of the procedure. Serial chest x-ray showed stable/small pneumothorax and patient was admitted to the hospital for monitoring. During his hospital stay he was noted to have a mild layering pleural effusion on the right, his pneumothorax resolved on follow-up imaging. Was found to be hypoxic on room air, does have a history of COPD. Home oxygen was arranged, patient currently tolerating 4 L per nasal cannula, denies shortness of breath at this time. Home oxygen was delivered to bedside with concentrator and portable tanks. Patient and his sister who is a registered nurse are at bedside, plan is for discharge home and close follow-up with Dr. Kanpulmonology in around 1 week for results from pathology and reevaluation. Continue home medications as previously prescribed Additional prescriptions for prednisone 10 mg by mouth twice daily for 1 week and levofloxacin 750 mg by mouth once daily for 5 days have been sent to [facility] in [place]. Please be sure to follow-up with Dr. Kan in 1 week. Vital Signs/Physical Exam: Temp Pulse Resp BP Pulse Ox 98.8 F 92 H 18 125/70 95 02/02/24 16:00 02/02/24 16:00 02/02/24 16:00 02/02/24 16:00 02/02/24 16:00 General: Alert, In no apparent distress, Oriented x3, Other (frail) HEENT: Atraumatic, PERRLA Neck: Supple, JVD not distended Respiratory: Clear to auscultation bilaterally, Normal air movement Cardiovascular: Regular rate/rhythm, Normal S1 S2 Gastrointestinal: Normal bowel sounds, No tenderness Musculoskeletal: No tenderness Integumentary: No rashes Neurological: Normal speech, Normal affect Laboratory Data at Discharge: WBC 16.50 thou/uL (4.3-10.9) H 02/02/24 05:18 Hgb 11.5 g/dL (13.6-17.9) L 02/02/24 05:18 Hct 34.5 % (39.6-49.0) L 02/02/24 05:18 Plt Count 415 thou/uL (152-406) H 02/02/24 05:18 PT 11.9 SECONDS (9.4-12.5) 01/31/24 08:37 INR 1.06 01/31/24 08:37 APTT 31.4 SECONDS (24.3-36.9) 01/31/24 08:37 Sodium 134 mEq/L (136-145) L 02/01/24 11:45 Potassium 3.3 mEq/L (3.5-5.1) L 02/01/24 11:45 BUN 15 mg/dL (7-18) 02/01/24 11:45 Creatinine 0.77 mg/dL (0.70-1.30) 02/01/24 11:45 Glucose 141 mg/dL (74-106) H 02/01/24 11:45 Total Bilirubin 0.5 mg/dL (0.2-1.0) 02/01/24 11:45 AST 27 U/L (15-37) 02/01/24 11:45 ALT < 14 U/L (16-61) L 02/01/24 11:45 Alkaline Phosphatase 93 U/L (45-117) 02/01/24 11:45 Home Medications: Gabapentin 800 mg PO BEDTIME 01/14/24 Tramadol HCl [Ultram] 50 mg PO BEDTIME 01/14/24 Trazodone HCl 100 mg PO BEDTIME 01/14/24 levoFLOXacin [Levaquin*] 750 mg PO DAILY #5 tab 02/02/24 predniSONE [Deltasone*] 10 mg PO BID 7 Days #14 tab 02/02/24 New Medications: predniSONE [Deltasone*] 10 mg PO BID 7 Days #14 tab levoFLOXacin [Levaquin*] 750 mg PO DAILY #5 tab Physician Discharge Instructions: Patient presented to the hospital for an outpatient CT-guided lung biopsy, he had a pneumothorax as a complication of the procedure. Serial chest x-ray showed stable/small pneumothorax and patient was admitted to the hospital for monitoring. During his hospital stay he was noted to have a mild layering pleural effusion on the right, his pneumothorax resolved on follow-up imaging. Was found to be hypoxic on room air, does have a history of COPD. Home oxygen was arranged, patient currently tolerating 4 L per nasal cannula, denies shortness of breath at this time. Home oxygen was delivered to bedside with concentrator and portable tanks. Patient and his sister who is a registered nurse are at bedside, plan is for discharge home and close follow-up with Dr. Kanpulmonology in around 1 week for results from pathology and reevaluation. Continue home medications as previously prescribed Additional prescriptions for prednisone 10 mg by mouth twice daily for 1 week and levofloxacin 750 mg by mouth once daily for 5 days have been sent to [facility] in [place]. Please be sure to follow-up with Dr. Kan in 1 week. Diet: Regular Activity: Fall precautions Followup: Scott Kan MD [ACTIVE - CAN ADMIT] - 1 Week Melany Funk MD [Primary Care Provider] - 1 Week Time spent managing pt's care (in minutes): 45
[2024-02-03] MEDS ORDERED: levoFLOXacin 500 MG TAB PO SCH (09:00)
== END 2024-02-02 19:50 | disposition home or self-care (01) | DRG 200 ==
LOC: DS 07:24 → 2ND 14:55 → OBSVTOIN 02-01 13:49
PROVIDERS: ADMIT Hospitalist; ATTEND Hospitalist
PROC: 0B9K3ZX Drainage of Right Lung, Percutaneous Approach, Diagnostic (ICD-10-PCS; principal; 2024-01-31)
DX: J93.9 Pneumothorax, unspecified (principal); J91.8 Pleural effusion in other conditions classified elsewhere; G62.9 Polyneuropathy, unspecified; J44.9 Chronic obstructive pulmonary disease, unspecified; R09.02 Hypoxemia; Z95.1 Presence of aortocoronary bypass graft; Z79.82 Long term (current) use of aspirin; Z79.899 Other long term (current) drug therapy; Z87.891 Personal history of nicotine dependence
CPT/HCPCS: 36415; 71045; 71046; 77012; 80053; 85027; 85049; 85610; 85730; 88304; 88305; 94640; 94760; G0378; G0379; J2250; J2310; J3010; J7030; J7512; J7605; J7613

== ENCOUNTER 2024-03-25 09:35 | Inpatient (IN) | payer MEDICARE, OTHER ==
[2024-03-25] MEDS ORDERED: METHYLPREDNISOLONE 125 MG INJ ONE (09:47)
[2024-03-25] MEDS ORDERED: LEVALBUTEROL 1.25 MG/3 ML NEB ONE (09:47)
[2024-03-25] MEDS ORDERED: FAMOTIDINE 20 MG/2 ML VIAL IV ONE (09:47)
[2024-03-25] MEDS ORDERED: NA CHLORIDE 0.9% 1,000 ML ONE (09:47)
[2024-03-25] MEDS ORDERED: IPRATROPIUM BROM 0.5MG/2.5ML ONE (09:47)
[2024-03-25 10:08] LABS: Absolute Lymphocytes (CBC) 0.8 K/uL (0.7-4.9); Absolute Monocytes 0.7 K/uL (0.1-1.3); Absolute Neutrophil 5.9 K/uL (1.8-8.0); Basophils % 0.3 % (0-1.3); Hematocrit 38.5 % (39.6-49.0); Hemoglobin 12.6 g/dL (13.6-17.9); Lymphocytes % 11.2 % (15.3-44.8); MCH 29.8 pg (27.0-35.0); MCHC 32.7 g/dL (32.0-36.0); MCV 91.1 fL (80-100); MPV 8.6 fL (7.6-11.3); Monocytes % 9.2 % (3.3-12.3); Neutrophils % 79.3 % (41.7-73.7); Nucleated Red Blood Cells % 0.2 % (0-0); Platelets 244 thou/uL (152-406); RBC Red Blood Cell Count 4.22 M/uL (4.33-5.43); Red Cell Distribution Width 17.5 % (12.1-15.2)
[2024-03-25 10:14] LABS: PT Prothrombin Time 11.5 SECONDS (9.4-12.5); Protime INR 1.1
[2024-03-25 10:33] LABS: Albumin 2.2 g/dL (3.4-5.0); Albumin/Globulin Ratio 0.5 (1.1-1.8); Anion Gap 10.6 mEq/L (5.0-15.0); Bilirubin Direct 0.5 mg/dL (0-0.2); Bilirubin Indirect, Calculated 0.4 mg/dL (0.2-0.8); Bilirubin Total 0.9 mg/dL (0.2-1.0); Globulin 4.8 g/dL (2.3-3.5); Magnesium 2.1 mg/dL (1.6-2.4); Potassium 3.6 mEq/L (3.5-5.1); Troponin High Sensitivity 8.3 pg/mL (<58.9)
[2024-03-25] MEDS ORDERED: Levofloxacin500mg IV 500 MG/100 ML BAG IV ONE (10:40)
--- NOTE | 2024-03-25 10:48 | RAD REPORT ---
EXAMINATION: ONE VIEW CHEST XR CLINICAL INDICATION: Male, 74 years old.,COUGH TECHNIQUE: Frontal chest projection is submitted. Examination is limited by patient positioning and t echnique. COMPARISON: 02/02/2024 FINDINGS: Wedge-shaped right hilar opacity persists. Interval resolution of basilar pleural-parenchymal opacifi cation since the prior exam. No pneumothorax or left-sided effusion. The heart is normal in size. Mediastinal contours are unremarkable. Peripheral bilateral midlung calcified nodules versus pleural plaque, stable. IMPRESSION: Wedge-shaped right hilar opacity persists, may reflect residual or recurrent airspace disease versus an underlying mass. Correlate with prior biopsy results.
--- NOTE | 2024-03-25 10:57 | EDPHYS ---
Physician Documentation [facility] Name: Demond Acosta Age: 74 yrs Sex: Male : 1950 Arrival Date: 03/25/2024 Time: 09:35 Bed 2 Private MD: ED Physician Aleks Mariscal HPI: 03/25 10:53 This 74 yrs old Male presents to ER via EMS with complaints of General jennifer Weakness. Historical: - Allergies: 09:39 No Known Allergies; ph - PMHx: 09:39 blood clots; Hypercholesterolemia; Hypertensive disorder; ph - PSHx: 09:39 stents; ph - Immunization history:: Adult Immunizations unknown. - Infectious Disease History:: Denies. - Social history:: Smoking status: unknown. ROS: 10:54 Constitutional: Negative for fever, chills, and weight loss, Eyes: Negative for injury, jennifer pain, redness, and discharge, ENT: Negative for injury, pain, and discharge, Neck: Negative for injury, pain, and swelling, Abdomen/GI: Negative for abdominal pain, nausea, vomiting, diarrhea, and constipation, Back: Negative for injury and pain, : Negative for injury, bleeding, discharge, and swelling, MS/Extremity: Negative for injury and deformity, Skin: Negative for injury, rash, and discoloration, Psych: Negative for depression, anxiety, suicide ideation, homicidal ideation, and hallucinations, Allergy/Immunology: Negative for hives, rash, and allergies, Endocrine: Negative for neck swelling, polydipsia, polyuria, polyphagia, and marked weight changes, Hematologic/Lymphatic: Negative for swollen nodes, abnormal bleeding, and unusual bruising, 10:54 Cardiovascular: Positive for palpitations, 10:54 Respiratory: Positive for cough, shortness of breath, 10:54 Abdomen/GI: Positive for nausea, anorexia, Exam: 10:54 Constitutional: This is a well developed, well nourished patient who is awake, alert, jennifer and in no acute distress. Head/Face: Normocephalic, atraumatic. Eyes: Pupils equal round and reactive to light, extra-ocular motions intact. Lids and lashes normal. Conjunctiva and sclera are non-icteric and not injected. Cornea within normal limits. Periorbital areas with no swelling, redness, or edema. ENT: Nares patent. No nasal discharge, no septal abnormalities noted. Tympanic membranes are normal and external auditory canals are clear. Oropharynx with no redness, swelling, or masses, exudates, or evidence of obstruction, uvula midline. Mucous membranes moist. Neck: Trachea midline, no thyromegaly or masses palpated, and no cervical lymphadenopathy. Supple, full range of motion without nuchal rigidity, or vertebral point tenderness. No Meningismus. Chest/axilla: Normal chest wall appearance and motion. Nontender with no deformity. No lesions are appreciated. Cardiovascular: Regular rate and rhythm with a normal S1 and S2. No gallops, murmurs, or rubs. Normal PMI, no JVD. No pulse deficits. Back: No spinal tenderness. No costovertebral tenderness. Full range of motion. Male : Normal genitalia with no discharge or lesions. Skin: Warm, dry with normal turgor. Normal color with no rashes, no lesions, and no evidence of cellulitis. MS/ Extremity: Pulses equal, no cyanosis. Neurovascular intact. Full, normal range of motion., bilateral aka Neuro: Awake and alert, GCS 15, oriented to person, place, time, and situation. Cranial nerves II-XII grossly intact. Motor strength 5/5 in all extremities. Sensory grossly intact. Cerebellar exam normal. Normal gait. Psych: Awake, alert, with orientation to person, place and time. Behavior, mood, and affect are within normal limits. 10:54 Respiratory: the patient does not display signs of respiratory distress, Respirations: labored breathing, that is mild, Breath sounds: are clear throughout, decreased breath sounds, that are moderate, Respiratory rate: 22 11:18 ECG was reviewed by the Attending Physician. jennifer Vital Signs: 09:36 BP 122 / 88; Pulse 101; Resp 18; Pulse Ox 98% on R/A; Weight 45.36 kg; Height 5 ft. 8 ph in. ; 10:55 BP 134 / 67; Pulse 90; Resp 18; Temp 98; Pulse Ox 99% on Nebulizer Mask; ph 12:00 BP 115 / 58; Pulse 93; Resp 16; Temp 97.5; Pulse Ox 97% on R/A; ph 13:21 BP 102 / 62; Pulse 90; Resp 18; Pulse Ox 98% on R/A; ph 09:36 Body Mass Index 15.20 (45.36 kg, 172.72 cm) ph MDM: 09:36 Medical Screening Exam initiated jennifer 11:16 Differential Diagnosis altered mental status, sepsis, flu. Differential Diagnosis: CVA, jennifer electrolyte abnormality, alcohol intoxication, hypoglycemia, intracranial bleed, meningitis, overdose, pneumonia, seizure, sepsis, TIA, UTI, volume depletion. Data reviewed: vital signs, nurses notes, EMS record, lab test result(s), EKG, radiologic studies, CT scan. Consideration of Admission/Observation Patient was admitted/placed on observation. Escalation of care including admission/observation considered. I considered the following discharge prescriptions or medication management in the emergency department Medications were administered in the Emergency Department. See MAR. Independent interpretation of the following test(s) in the Emergency Department EKG: See my EKG interpretation above. Test considered but Not performed: MRI: no mri brain. Historians other than the Patient: Family Member: brothers and sister. Care significantly affected by the following chronic conditions: Hypertension, Chronic Obstructive Pulmonary Disease, Cancer, tobacco, blood clots. Counseling: I had a detailed discussion with the patient and/or guardian regarding the historical points, exam findings, and any diagnostic results supporting the discharge/admit diagnosis, lab results, radiology results, the need to transfer to another facility, for higher level of care, [facility] does not immediately have the required specialist. 03/25 09:40 Order name: Basic Metabolic Panel; Complete Time: 10:41 03/25 09:40 Order name: CBC with Diff; Complete Time: 11:50 03/25 09:40 Order name: LFT's; Complete Time: 10:41 03/25 09:40 Order name: Magnesium; Complete Time: 10:41 03/25 09:40 Order name: NT PRO-BNP; Complete Time: 10:41 03/25 09:40 Order name: PT-INR; Complete Time: 10:30 03/25 09:40 Order name: Troponin HS; Complete Time: 10:41 03/25 09:40 Order name: Blood Culture Adult (2) 03/25 09:40 Order name: Lactate w/ 2H reflex if indic.; Complete Time: 10:30 03/25 09:40 Order name: Flu 03/25 09:40 Order name: SARS RAPID; Complete Time: 11:50 03/25 09:40 Order name: Lipase; Complete Time: 10:41 jennifer 03/25 09:40 Order name: Urinalysis w/ reflexes jennifer 03/25 10:24 Order name: AMMONIA; Complete Time: 11:50 03/25 10:32 Order name: Ghost Lactate-NO COLLECT Timer; Complete Time: 12:41 EDAK 03/25 11:30 Order name: Manual Differential; Complete Time: 11:50 EDAK 03/25 14:03 Order name: Lactate Sepsis 2 HR Follow-up EDAK 03/25 09:40 Order name: XRAY Chest (1 view); Complete Time: 10:53 jennifer 03/25 10:54 Order name: CT Head Brain wo Cont; Complete Time: 11:50 [facility] 03/25 10:54 Order name: CT Chest For PE Angio; Complete Time: 12:29 [facility] 03/25 10:54 Order name: CT Abd/Pelvis - IV Contrast Only; Complete Time: 12:29 [facility] 03/25 09:40 Order name: Cardiac monitoring; Complete Time: 09:43 [facility] 03/25 09:40 Order name: EKG - Nurse/Tech; Complete Time: 09:43 [facility] 03/25 09:40 Order name: IV Saline Lock; Complete Time: 09:47 [facility] 03/25 09:40 Order name: Labs collected and sent; Complete Time: 09:47 [facility] 03/25 09:40 Order name: O2 Per Protocol; Complete Time: 09:43 [facility] 03/25 09:40 Order name: O2 Sat Monitoring; Complete Time: 09:43 [facility] EC:18 Rate is 99 beats/min. Rhythm is regular. QRS [place] is Normal. [place] interval is normal. QRS jennifer interval is normal. QT interval is normal. No Q waves. T waves are Normal. ST Segment is depressed in leads II, III, aVF. Clinical impression: NSR w/ Non-specific ST/T Changes. Administered Medications: 10:25 Drug: NS 0.9% IV (30 ml/kg) 30 ml/kg IV at bolus once; Sepsis Protocol; to be given as ph a bolus over 90 minutes Route: IV; Rate: bolus; Site: right antecubital; 12:13 Follow up: Response: No adverse reaction; IV Status: Completed infusion; IV Intake: ph 1250ml 10:25 Drug: MethylPrednisoLONE IVP 2 mg/kg IVP once Route: IVP; Site: right antecubital; ph 12:13 Follow up: Response: No adverse reaction ph 10:25 Drug: Levalbuterol Inhalation 2.5 mg Inhalation once Route: Inhalation; ph 12:13 Follow up: Response: No adverse reaction ph 10:25 Drug: Ipratropium Inhalation Aerosol 0.5 mg Inhalation once Route: Inhalation; ph 12:12 Follow up: Response: No adverse reaction ph 10:25 Drug: Famotidine IVP 20 mg IVP once; dilute with 10 mL 0.9% NaCl; give over 2 minutes ph Route: IVP; Site: right antecubital; 12:12 Follow up: Response: No adverse reaction ph 10:46 Drug: levofloxacin IVPB 500 mg 100 ml IVPB once over 60 mins Volume: 100 ml; Route: ph IVPB; Infused Over: 60 mins; Site: right antecubital; 12:12 Follow up: Response: No adverse reaction; IV Status: Completed infusion; IV Intake: ph 100ml 12:15 Drug: D5-1/2 NS IV 1000 ml IV at 125 ml/hr continuous Route: IV; Rate: 125 ml/hr; Site: ph right antecubital; 14:00 Follow up: IV Status: Infusion continued upon admission ph Disposition Summary: 03/25/24 12:16 Hospitalization Ordered Notes: Hospitalization Status: Inpatient Admission jennifer Provider: Maximus Galvan cha Location: Telemetry/MedSurg (Inpatient) jennifer Condition: Fair(03/25/24 12:16) jennifer Problem: new(03/25/24 12:16) jennifer Symptoms: have improved(03/25/24 12:16) jennifer Bed/Room Type: Standard jennifer Room Assignment: 431(03/25/24 13:03) eb Diagnosis - Weakness(03/25/24 12:16) jennifer - Malignant neoplasm of lower lobe, right bronchus or lung jennifer - Malignant pleural effusion jennifer - COPD/ Chronic obstructive pulmonary disease with (acute) exacerbation(03/25/24 jennifer 12:16) - Dehydration(03/25/24 12:16) jennifer - Anorexia(03/25/24 12:16) jennifer - Bandemia jennifer Forms: - Medication Reconciliation Form jennifer - SBAR form jennifer - Leadership Thank You Letter jennifer Signatures: Dispatcher [employer] Aleks Fajardo MD MD cha Attema, Abhijeet, GIVER-C GIVER-Cla1 Mercedes Lopez, RN RN ph Elizabeth Sellers Corrections: (The following items were deleted from the chart) 09:41 09:40 BASIC METABOLIC PANEL+C.LAB.BRZ ordered. EDMS EDMS 09:41 09:40 CBC+H.LAB.BRZ ordered. EDMS EDMS 09:41 09:40 HEPATIC FUNCTION+C.LAB.BRZ ordered. EDMS EDMS 09:41 09:40 MAGNESIUM+C.LAB.BRZ ordered. EDMS EDMS 09:41 09:40 PROBNP+C.LAB.BRZ ordered. EDMS EDMS 09:41 09:40 PROTIME (+INR)+COAG.LAB.BRZ ordered. EDMS EDMS 09:41 09:41 Troponin High Sensitivity+C.LAB.BRZ ordered. EDMS EDMS 09:41 09:41 BLOOD CULTURE*+BA.LAB.BRZ ordered. EDMS EDMS 09:41 09:41 LACTATE+C.LAB.BRZ ordered. EDMS EDMS 09:41 09:41 Influenza Screen (A \T\ B)+BA.LAB.BRZ ordered. EDMS EDMS 09:41 09:41 SARS-COV-2 Antigen Rapid+I.LAB.BRZ ordered. EDMS EDMS 09:41 09:41 LIPASE+C.LAB.BRZ ordered. EDMS EDMS 09:41 09:41 Urinalysis+U.LAB.BRZ ordered. EDMS EDMS 12:07 10:57 to [place] jennifer jennifer 12:07 10:57 '[facility] Administration System jennifer jennifer 12:07 10:57 Higher level of care jennifer jeninfer 12:07 10:57 Fair jennifer jennifer 12:07 10:57 new jennifer jennifer 12:07 10:57 have improved jennifer jennifer 12:07 10:57 Weakness jennifer jennifer 12:07 10:57 Anorexia jennifer jennifer 12:07 10:57 COPD/ Chronic obstructive pulmonary disease with (acute) exacerbation jennifer jennifer 12:07 10:57 Dehydration jennifer jennifer 13:03 12:16 jennifer eb
--- NOTE | 2024-03-25 10:57 | ER ---
Nurse's Notes [facility] Name: Demond Acosta Age: 74 yrs Sex: Male : 1950 Arrival Date: 03/25/2024 Time: 09:35 Bed 2 Private MD: Diagnosis: Weakness;Malignant neoplasm of lower lobe, right bronchus or lung;Malignant pleural effusion;COPD/ Chronic obstructive pulmonary disease with (acute) exacerbation;Dehydration;Anorexia;Bandemia Presentation: 03/25 09:36 Chief complaint: EMS states: General weakness and lethargy, sore to buttocks, BP [employer] ph 99/44, HR 50s-160s, room air Spo2 82%, pt states that symptoms started approx 30 days ago, usually ambulatory but has been unable to walk for the last week. Coronavirus screen: Vaccine status: Patient reports being unvaccinated. Ebola Screen: No symptoms or risks identified at this time. Initial Sepsis Screen: Does the patient meet any 2 criteria? No. Patient's initial sepsis screen is negative. Does the patient have a suspected source of infection? No. Patient's initial sepsis screen is negative. Risk Assessment: Do you want to hurt yourself or someone else? Patient reports no desire to harm self or others. Onset of symptoms was March 25, 2024. 09:36 Method Of Arrival: EMS: [facility] 09:36 Acuity: ASHLEY 2 ph Triage Assessment: 09:40 General: Appears in no apparent distress. ill, emaciated. Pain: Complains of pain in ph buttocks. Neuro: Level of Consciousness is awake, obeys commands, lethargic, Oriented to person, place, time, situation. Cardiovascular: Capillary refill < 3 seconds in bilateral fingers Patient's skin is warm and dry. Respiratory: Airway is patent Respiratory effort is even, unlabored. Historical: - Allergies: 09:39 No Known Allergies; ph - PMHx: 09:39 blood clots; Hypercholesterolemia; Hypertensive disorder; ph - PSHx: 09:39 stents; ph - Immunization history:: Adult Immunizations unknown. - Infectious Disease History:: Denies. - Social history:: Smoking status: unknown. Screenin:41 [facility] ED Fall Risk Assessment (Adult) History of falling in the last 3 months, ph including since admission No falls in past 3 months (0 pts) Confusion or Disorientation No (0 pts) Intoxicated or Sedated No (0 pts) Impaired Gait Yes (1 pt) Mobility Assist Device Used Yes (1 pt) Altered Elimination Yes (1 pt) Score/Fall Risk Level 3 or more points = High Risk Oriented to surroundings, Maintained a safe environment, Hourly rounding (assess needs \T\ fall precautionary measures) done, Used ambulatory aids as needed (educated on \T\ assisted with). Abuse screen: Denies threats or abuse. Denies injuries from another. Nutritional screening: No deficits noted. Tuberculosis screening: No symptoms or risk factors identified. Assessment: 10:55 General: SEE TRIAGE ASSESMENT. Derm: Decubitus located on sacrum approximately 2.6 cm ph to 7.5 cm is stage I. Derm: Decubitus located on sacrum approximately 1.5 cm to 2.5 cm is stage II. Vital Signs: 09:36 BP 122 / 88; Pulse 101; Resp 18; Pulse Ox 98% on R/A; Weight 45.36 kg; Height 5 ft. 8 ph in. ; 10:55 BP 134 / 67; Pulse 90; Resp 18; Temp 98; Pulse Ox 99% on Nebulizer Mask; ph 12:00 BP 115 / 58; Pulse 93; Resp 16; Temp 97.5; Pulse Ox 97% on R/A; ph 13:21 BP 102 / 62; Pulse 90; Resp 18; Pulse Ox 98% on R/A; ph 09:36 Body Mass Index 15.20 (45.36 kg, 172.72 cm) ph ED Course: 09:36 Patient arrived in ED. ph 09:36 Aleks Mariscal MD is Attending Physician. jennifer 09:39 Triage completed. ph 09:40 Arm band placed on Patient placed in an exam room, on a stretcher, on club attendant, ph on pulse oximetry. 09:42 Patient has correct armband on for positive identification. Bed in low position. Call ph light in reach. Side rails up X 1. Client placed on continuous cardiac and pulse oximetry monitoring. NIBP monitoring applied. tobacco acreage measurer on. Door closed. Noise minimized. Warm blanket given. Pillow given. 09:45 Mercedes Lopez RN is Primary Nurse. ph 10:04 Maintain EMS IV. Dressing intact. Good blood return noted. Site clean \T\ dry. Gauge \T\ ph site: 20 RAC. Flushed with 10 mL NS. 10:30 XRAY Chest (1 view) In Process Unspecified. EDMS 10:30 Notified ED physician of a critical lab result(s). LAC 3.1. hb 10:30 Initial lab(s) drawn, by ED staff, sent to lab. COVID swab sent to lab. Flu and/or RSV ph swab sent to lab. Inserted saline lock: 22 gauge in right antecubital area, using aseptic technique. Blood collected. Flushed with 10 mL NS. 11:16 initiated a transfer with Yoko from the [facility] transfer center. eb 11:26 CT Head Brain wo Cont In Process Unspecified. EDMS 11:26 CT Chest For PE Angio In Process Unspecified. EDMS 11:26 CT Abd/Pelvis - IV Contrast Only In Process Unspecified. EDMS 11:30 Anne Marie Madsen from the [facility] called to decline the patient in transfer/ they are at capacity eb currently and are not accepting any transfers currently. 12:14 Maximus Galvan MD is Hospitalizing Provider. jennifer 14:04 No provider procedures requiring assistance completed. Patient admitted, IV remains in ph place. Administered Medications: 10:25 Drug: NS 0.9% IV (30 ml/kg) 30 ml/kg IV at bolus once; Sepsis Protocol; to be given as ph a bolus over 90 minutes Route: IV; Rate: bolus; Site: right antecubital; 12:13 Follow up: Response: No adverse reaction; IV Status: Completed infusion; IV Intake: ph 1250ml 10:25 Drug: MethylPrednisoLONE IVP 2 mg/kg IVP once Route: IVP; Site: right antecubital; ph 12:13 Follow up: Response: No adverse reaction ph 10:25 Drug: Levalbuterol Inhalation 2.5 mg Inhalation once Route: Inhalation; ph 12:13 Follow up: Response: No adverse reaction ph 10:25 Drug: Ipratropium Inhalation Aerosol 0.5 mg Inhalation once Route: Inhalation; ph 12:12 Follow up: Response: No adverse reaction ph 10:25 Drug: Famotidine IVP 20 mg IVP once; dilute with 10 mL 0.9% NaCl; give over 2 minutes ph Route: IVP; Site: right antecubital; 12:12 Follow up: Response: No adverse reaction ph 10:46 Drug: levofloxacin IVPB 500 mg 100 ml IVPB once over 60 mins Volume: 100 ml; Route: ph IVPB; Infused Over: 60 mins; Site: right antecubital; 12:12 Follow up: Response: No adverse reaction; IV Status: Completed infusion; IV Intake: ph 100ml 12:15 Drug: D5-1/2 NS IV 1000 ml IV at 125 ml/hr continuous Route: IV; Rate: 125 ml/hr; Site: ph right antecubital; 14:00 Follow up: IV Status: Infusion continued upon admission ph Medication: 09:41 VIS not applicable for this client. ph Intake: 12:12 IV: 100ml; Total: 100ml. ph 12:13 IV: 1250ml; Total: 1350ml. ph Outcome: 10:57 ER care complete, transfer ordered by . [facility] 12:16 Decision to Hospitalize by Provider. [facility] 14:04 Patient left the ED. ph 14:04 Admitted to Med/surg accompanied by tech, with chart, ph 14:04 Condition: stable 14:04 Instructed on the need for admit, Signatures: Dispatcher [employer] Aleks Fajardo MD MD cha Hall, Patricia, RN RN Megan Johnson RN RN Elizabeth Sellers
[2024-03-25 11:29] LABS: Anisocytosis 1+; Band Neutrophils 4 % (0-1); Blood Morphology Comment NOTED (NOT SEEN); Differential Total Cells Count 100; Lymphocytes 13 % (15-42); Monocytes 7 % (0-10); Myelocytes 1 % (0-0); Platelet Estimate ADEQ; Segmented Neutrophils 75 % (40-80)
--- NOTE | 2024-03-25 11:39 | RAD REPORT ---
EXAM: CT Head Brain Wo Cont HISTORY: MENTAL STATUS CHANGE COMPARISON: None TECHNIQUE: Multiple contiguous axial images were obtained for a CT of the brain without contrast. Sag ittal and coronal reformats were performed. One or more of the following dose reduction techniques were used: Automated exposure control, adjus tment of the mA and kV according to patient size, and iterative reconstruction. Unless otherwise specified, incidental findings do not require dedicated imaging follow-up. FINDINGS: No evidence of hydrocephalus, intracranial hemorrhage, or extra-axial fluid collection. Mild brain atrophy with mild periventricular and deep white matter chronic microvascular ischemic ch anges, commensurate with age. The calvarium is intact. The visualized paranasal sinuses are clear. Patchy opacification of the left mastoid air cells.. IMPRESSION: No evidence of acute intracranial abnormality.
[2024-03-25 11:41] LABS: SARS-CoV-2 Antigen CONTROL BLUE LINE VIS/BG OK; SARS-CoV-2 Antigen Rapid Res Negative (Negative)
--- NOTE | 2024-03-25 11:59 | RAD REPORT ---
EXAM: CT Chest For Pe Angio TECHNIQUE: CT angiogram of the chest was performed following intravenous contrast administration, inc luding sagittal and coronal as well as maximum intensity projection reformats. One or more of the following dose reduction techniques were used: Automated exposure control, adjustment of the mA and k V according to patient size, and iterative reconstruction. Unless otherwise specified, incidental findings do not require dedicated imaging follow-up. INDICATION: [facility] COPD COMPARISON: Chest radiograph of earlier the same day. CT chest 12/28/2023 FINDINGS: LINES/TUBES: None. PULMONARY ARTERIES: Main pulmonary arteries are normal in caliber. No filling defects within the pul monary arteries to suggest pulmonary embolus. LUNGS AND AIRWAYS: Progressive perihilar masslike opacification, involving the upper segment right lo wer lobe, with nodular components extending centrally and caudally within the right lower lobe, see axial image 72/114. The most sizable mass component as measured on axial image 59 measures 6.2 x 3.3 cm, previously measured 5.7 x 2.5 cm when measured in a similar fashion. More extensive peribronchovascular nodularity seen in the more caudal posterior right lower lobe. There is compressi on or opacification of the intermediate bronchus, with focal occlusion on axial image 56, with bronchial branches opacified more distally. Background moderate centrilobular emphysematous changes PLEURA: Small bilateral layering pleural effusions. No pneumothorax. HEART AND MEDIASTINUM: The visualized thyroid gland is normal. Progressive mediastinal adenopathy, wi th largest pretracheal node measuring 1.7 cm in short axis, previously measured 1.2 cm. Subcarinal node measures 1.6 cm in short axis previously measured 9 mm. Infrahilar node versus component of the mass measures 1.7 cm in greatest dimension, previously measured 1.2 cm. Heart is unremarkable. No pericardial effusion. Aorta shows stable dilation of the level of the sinotubular junction. The ascen ding thoracic aorta is within normal limits in caliber. SOFT TISSUES AND BONES: No acute osseous abnormality. No significant soft tissue finding. UPPER ABDOMEN: Separately evaluated on abdomen/pelvis CT of the same day. IMPRESSION: Progressive perihilar mass on the right extending into the upper segment of right lower lobe, with mo re caudal and posterior satellite nodular peribronchovascular components. Findings are concerning for progressive malignancy. Progressive mediastinal and right hilar adenopathy as well. New small bilateral layering pleural effusions. No evidence of pulmonary emboli. Other stable findings as above.
--- NOTE | 2024-03-25 12:08 | RAD REPORT ---
EXAMINATION: CT Abdomen Pelvis W Contrast CLINICAL INDICATION: Male, 74 years old. ABD PAIN TECHNIQUE: CT abdomen and pelvis was performed, after the administration of IV contrast, as per depar tment protocol. Axial, sagittal and coronal reconstructions were obtained. One or more of the following dose reduction techniques were used: Automated exposure control, adjustment of the mA and k V according to patient size, and iterative reconstruction. Unless otherwise specified, incidental findings do not require dedicated imaging follow-up. COMPARISON: No prior exam. FINDINGS: LOWER CHEST: Separately evaluated on dedicated CT chest of the same day. LIVER: Diffuse hepatomegaly with nodular contour. Innumerable hypodense lesions, some of which demons trating target morphology. Large subcapsular right lobe lesion measuring 4 cm. BILIARY SYSTEM: No suspicious abnormalities. SPLEEN: Normal size. No focal lesion. PANCREAS: No mass, ductal dilation, or karen-pancreatic fluid. ADRENALS: Normal; no mass. KIDNEYS: Normal size and contour. No hydronephrosis. URINARY BLADDER: Unremarkable. GASTROINTESTINAL TRACT: No evidence of free air, significant intra-abdominal free fluid, bowel obstru ction or abscess. Nonspecific fluid filling throughout segments of the distal small bowel, may relate to mild enteritis or diarrheal state. APPENDIX: Appendix not visualized, but no inflammatory changes in region of appendix. LYMPH NODES: No lymphadenopathy. MUSCULOSKELETAL: Lytic lesion involving the outer cortex of the left iliac bone measuring 1.5 cm. Lyt ic lesion involving the right iliac bone, measuring 2.3 cm. Marginally sclerotic lesion of the left measuring 12 mm. Innumerable other hypodense lesions throughout the pelvic bones and vertebral bodies . Overall findings are concerning for metastatic disease. ADDITIONAL FINDINGS: Mild diffuse retroperitoneal and mesenteric edema. Patent aortobiiliac graft. IMPRESSION: Innumerable hepatic parenchymal hypoattenuating lesions concerning for metastatic disease. Numerous osseous lytic and sclerotic lesions concerning for metastatic disease. Nonspecific fluid filling throughout segments of the distal small bowel, may relate to mild enteritis or diarrheal state.
[2024-03-25] MEDS ORDERED: D5 0.45 NS 1,000 ML IV ONE (12:09)
--- NOTE | 2024-03-25 13:28 | P.HP ---
Certification for Inpatient Patient admitted to: Inpatient With expected LOS: >2 Midnights Patient will require the following post-hospital care: None Practitioner: I am a practitioner with admitting privileges, knowledge of patient current condition, hospital course, and medical plan of care. Services: Services provided to patient in accordance with Admission requirements found in Title 42 Section 412.3 of the Code of Federal Regulations Patient History Date of Service: 03/25/24 Reason for admission: Lung mass, weakness History of Present Illness: 74-year-old male with history of COPD, neuropathy presents the emergency department with chief complaint of general weakness. He was recently in the hospital on 02/01/[address]-guided lung biopsy resulted in a small pneumothorax. He had not since followed up with pulmonology as instructed. Patient was evaluated in the emergency department his labs are significant for an elevated alk phos of 446 calcium 12.5 lactic acid 3.1 sodium 131 chloride 95 hemoglobin 12.[address] of the chest shows progressive perihilar mass on the right extending into the upper segment of the right lower lobe with more caudal and posterior satellite nodular peribronchovascular components. Findings are concerning for progressive malignancy, progressive mediastinal and right hilar adenopathy is also noted, new small bilateral layering pleural effusions. CT abdomen pelvis was also performed which showed innumerable hepatic parenchymal hypoattenuating lesions concerning for metastatic disease. Numerous osseous lytic and sclerotic lesions concerning for metastatic disease. Nonspecific fluid filling throughout segments of the distal small bowel which may relate to mild enteritis or diarrheal state. Patient made aware of progression of suspected mass to the right lung along with other findings, will need to be admitted to the hospital for further management. Allergies No Known Allergies Allergy (Verified 01/14/24 15:35) Home Medications: Gabapentin 800 mg PO BEDTIME 01/14/24 Tramadol HCl [Ultram] 50 mg PO BEDTIME 01/14/24 Trazodone HCl 100 mg PO BEDTIME 01/14/24 levoFLOXacin [Levaquin*] 750 mg PO DAILY #5 tab 02/02/24 predniSONE [Deltasone*] 10 mg PO BID 7 Days #14 tab 02/02/24 - Past Medical/Surgical History -: COPD -: Neuropathy -: Lung mass -: CABG -: bypass BLE,ileo-femoral Psychosocial/ Personal History: Lives at home with his son - Social History Smoking Status: Former smoker Alcohol use: No CD- Drugs: No Caffeine use: Yes Place of Residence: Home Review of Systems General: Weakness, Malaise, Other (Pain all over) Respiratory: Cough, Shortness of Breath Physical Examination - Physical Exam General: In no apparent distress, Cachectic, Other (Drowsy) HEENT: Atraumatic, PERRLA, EOMI Neck: Supple Cardiovascular: Regular rate/rhythm, Normal S1 S2 Gastrointestinal: Normal bowel sounds, No tenderness Musculoskeletal: No tenderness Neurological: Normal affect - Studies Laboratory Data (last 24 hrs) 03/25/24 03/25/24 03/25/24 09:55 09:55 09:55 WBC 7.40 Hgb 12.6 L Hct 38.5 L Plt Count 244 PT 11.5 INR 1.10 Sodium 131 L Potassium 3.6 BUN 32 H Creatinine 0.84 Glucose 111 H Magnesium 2.1 Total Bilirubin 0.9 AST 146 H ALT 32 Alkaline Phosphatase 446 H Lipase 126 H Assessment and Plan - Plan Assessment: Progressive right lung mass with suspected bony mets, liver mets Deconditioning/debility History of COPD previously on home O2 Neuropathy Elevated lactate Hyponatremia-mild Plan: Progressive right lung mass with suspected bony mets, liver mets Case discussed with pulmonology Will plan for liver biopsy Path reports on previous bronchoscopy with lavage and CT-guided biopsy of the lung were inconclusive for malignancy At this point in time patient is amendable to biopsy and further aggressive care Likely to have liver biopsy on 03/27 due to availability Deconditioning/debility PT consult History of COPD previously on home O2 Supplemental oxygen as needed, nebulizer treatments as needed Neuropathy Continue home medications when verified Elevated lactate Hyponatremia-mild Continue IV fluids, repeat chemistry in the morning No clear sign of infectious process at this time. DVT PPX: Lovenox Code status: Full Discharge Plan: Home Plan to discharge in: Greater than 2 days - Advance Directives Does patient have a Living Will: No Does patient have a Durable POA for Healthcare: No - Code Status/Comfort Care Code Status Assessed: Yes (Full code) Critical Care: No Time Spent Managing Pts Care (In Minutes): 65
[2024-03-25] MEDS ORDERED: ALBUTEROL 2.5 MG/3 ML NEB SOL NEB PRN (14:26)
[2024-03-25] MEDS ORDERED: ONDANSETRON 4 MG/2 ML VIAL IV PRN (14:26)
[2024-03-25] MEDS ORDERED: MORPHINE 2 MG/ML SYR IV PRN (14:26)
[2024-03-25] MEDS ORDERED: ACETAMINOPHEN 325 MG TABLET PO PRN (14:26)
[2024-03-25] MEDS: NA CHLORIDE 0.9% 1,000 ML IV SCH (14:49)
[2024-03-25] MEDS: ENOXAPARIN 40 MG/0.4 ML SQ SCH (15:49)
[2024-03-25] MEDS: predniSONE 20 MG TAB PO SCH (21:30)
[2024-03-25] MEDS: AMOX/K CLAV 875 MG TAB PO SCH (21:30)
[2024-03-26 07:07] LABS: Absolute Lymphocytes (CBC) 0.4 K/uL (0.7-4.9); Absolute Monocytes 0.7 K/uL (0.1-1.3); Absolute Neutrophil 7.7 K/uL (1.8-8.0); Basophils % 0.1 % (0-1.3); Eosinophils % 0.1 % (0-4.4); Hematocrit 31.8 % (39.6-49.0); Hemoglobin 10.6 g/dL (13.6-17.9); Lymphocytes % 4.7 % (15.3-44.8); MCHC 33.4 g/dL (32.0-36.0); MCV 89.6 fL (80-100); MPV 9.2 fL (7.6-11.3); Monocytes % 8.1 % (3.3-12.3); Nucleated RBC Absolute Count 0.1 (0-0); Nucleated Red Blood Cells % 0.6 % (0-0); Platelets 157 thou/uL (152-406); RBC Red Blood Cell Count 3.55 M/uL (4.33-5.43); Red Cell Distribution Width 17.5 % (12.1-15.2)
[2024-03-26 07:19] LABS: Albumin/Globulin Ratio 0.5 (1.1-1.8); Anion Gap 11.6 mEq/L (5.0-15.0); Bilirubin Total 0.7 mg/dL (0.2-1.0); Globulin 3.9 g/dL (2.3-3.5); Potassium 3.6 mEq/L (3.5-5.1); Protein, Total 5.9 g/dL (6.4-8.2)
--- NOTE | 2024-03-26 09:25 | P.PN ---
Date of Service: 03/26/24 Subjective: No acute events overnight Son working on obtaining MPOA ROS: 10 point ROS as noted above, otherwise negative Physical exam GEN: Alert, oriented, NAD HEENT: Normal conjunctiva, sclera anicteric CV: Regular rate and rhythm, no edema Pulm: Nonlabored respirations on room air ABD: Soft, nontender, nondistended MSK: No joint tenderness Integumentary: No rashes Neuro: Normal speech, normal affect Vitals reviewed Assessment: Progressive right lung mass with suspected bony mets, liver mets Deconditioning/debility History of COPD previously on home O2 Neuropathy Elevated lactate Hyponatremia-mild Plan: Progressive right lung mass with suspected bony mets, liver mets Case discussed with pulmonology Will plan for liver biopsy 03/27 Path reports on previous bronchoscopy with lavage and CT-guided biopsy of the lung were inconclusive for malignancy At this point in time patient/family is amendable to biopsy and further aggressive care Likely to have liver biopsy on 03/27 due to availability Deconditioning/debility PT consult History of COPD previously on home O2 Supplemental oxygen as needed, nebulizer treatments as needed Neuropathy Continue home medications when verified Elevated lactate Hyponatremia-mild Continue IV fluids, repeat chemistry in the morning No clear sign of infectious process at this time. DVT PPX: Lovenox Code status: Full Discharge Plan: Home Plan to discharge in: Greater than 2 days Time Spent Managing Pts Care (In Minutes): 35
--- NOTE | 2024-03-26 11:52 | EKG ---
Test Date: 2024-03-25 Test Time: 09:44:26 Public Health Director: KEIRA MEASUREMENT RESULTS: Intervals: Rate: 99 SC: 156 QRSD: 80 QT: 340 QTc: 436 [place]: P: 84 SC: 156 QRS: 30 T: 94 INTERPRETIVE STATEMENTS: Sinus rhythm with premature supraventricular complexes Septal infarct, age undetermined Abnormal ECG Compared to ECG 12/28/2023 11:37:02 Atrial premature complex(es) now present Sinus bradycardia no longer present Left-axis deviation no longer present Myocardial infarct finding still present Electronically Signed On 03-26-24 11:50:51 PICK UP ATTENDANT by Dallin Trevizo
--- NOTE | 2024-03-26 12:43 | P.CNS ---
Date of Consult: 03/26/24 Reason for Consult: Lung mass with metastases Chief Complaint: Lung mass, weakness History of Present Illness: Patient is 74 years of age with a history of COPD recent nondiagnostic bronchoscopy and CT-guided needle biopsy he has not followed up with me solomon curran to the emergency room with abnormal labs elevated alkaline phosphatase diffuse metastatic disease patient is delirious planing of generalized pain he is scheduled to have a liver biopsy done tomorrow patient is lost weight very debilitated Allergies No Known Allergies Allergy (Verified 01/14/24 15:35) Home Medications: Gabapentin 800 mg PO TID 01/14/24 Tramadol HCl [Ultram] 50 mg PO PRN PRN 01/14/24 Trazodone HCl 100 mg PO BEDTIME 01/14/24 levoFLOXacin [Levaquin*] 750 mg PO DAILY #5 tab 02/02/24 predniSONE [Deltasone*] 10 mg PO BID 7 Days #14 tab 02/02/24 - Past Medical/Surgical History Diabetic: No -: COPD -: Neuropathy -: Lung mass -: CABG -: bypass BLE,ileo-femoral Psychosocial/ Personal History: Lives at home with his son - Social History Smoking Status: Unknown if ever smoked Alcohol use: No CD- Drugs: No Caffeine use: Yes Place of Residence: Home Review of Systems is unable to be obtained Physical Examination Temp Pulse Resp BP Pulse Ox 97.2 F 91 H 18 149/78 H 100 03/26/24 08:00 03/26/24 08:00 03/26/24 08:00 03/26/24 08:00 03/26/24 08:00 General: Alert, Delirious Respiratory: Diminished Cardiovascular: No edema, Regular rate/rhythm, Normal S1 S2 - Problems (1) Metastatic disease Current Visit: Yes Status: Acute Plan: Patient is 74 years of age I suspect as he has lung cancer with diffuse metastatic disease including mets to the liver and the bone stage IV lung cancer his prognosis is very poor patient did under want to undergo biopsy and diagnosis is scheduled for a liver biopsy tomorrow patient has hypercalcemia abnormal LFTs all consistent with diffuse metastatic disease his overall prognosis is very poor vital signs are stable agree with prednisone and IV fluids also consider hospice care Qualifiers: Area of secondary neoplastic involvement: bone marrow Qualified Code(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
[2024-03-26] MEDS: JUVEN PACKET PO SCH (21:00)
[2024-03-26] MEDS: ENSURE ENLIVE 237 ML CAN PO SCH (21:00)
[2024-03-27 06:54] LABS: Albumin 2.2 g/dL (3.4-5.0); Albumin/Globulin Ratio 0.6 (1.1-1.8); Anion Gap 13.6 mEq/L (5.0-15.0); Bilirubin Total 0.9 mg/dL (0.2-1.0); Globulin 3.9 g/dL (2.3-3.5); Potassium 3.6 mEq/L (3.5-5.1); Protein, Total 6.1 g/dL (6.4-8.2)
[2024-03-27 07:57] LABS: PT Prothrombin Time 12.6 SECONDS (9.4-12.5); Protime INR 1.2
[2024-03-27 07:59] LABS: Absolute Lymphocytes (CBC) 0.4 K/uL (0.7-4.9); Absolute Monocytes 0.8 K/uL (0.1-1.3); Absolute Neutrophil 8.6 K/uL (1.8-8.0); Basophils % 0.2 % (0-1.3); Eosinophils % 0.1 % (0-4.4); Hematocrit 33.4 % (39.6-49.0); Hemoglobin 11.3 g/dL (13.6-17.9); Lymphocytes % 4.4 % (15.3-44.8); MCHC 33.8 g/dL (32.0-36.0); MCV 88.9 fL (80-100); MPV 8.6 fL (7.6-11.3); Monocytes % 7.8 % (3.3-12.3); Neutrophils % 87.5 % (41.7-73.7); Nucleated Red Blood Cells % 0.3 % (0-0); Platelets 193 thou/uL (152-406); RBC Red Blood Cell Count 3.75 M/uL (4.33-5.43); Red Cell Distribution Width 17.9 % (12.1-15.2)
[2024-03-27] MEDS: KCL 20 MEQ/100 mL IVPB 20 MEQ/100 ML BAG IV SCH (08:15)
[2024-03-27] MEDS: FLUMAZENIL 0.1 MG/ML (5 mL VIAL) IV ONE (09:26)
[2024-03-27] MEDS: ONDANSETRON 4 MG/2 ML VIAL ONE (09:26)
[2024-03-27] MEDS: NALOXONE HCL 2 MG/2 ML VIAL ONE (09:26)
--- NOTE | 2024-03-27 10:25 | P.PN ---
Date of Service: 03/27/24 Subjective: Going for liver biopsy today No acute events overnight ROS: 10 point ROS as noted above, otherwise negative Physical exam GEN: Alert, oriented, NAD HEENT: Normal conjunctiva, sclera anicteric CV: Regular rate and rhythm, no edema Pulm: Nonlabored respirations on room air ABD: Soft, nontender, nondistended MSK: No joint tenderness Integumentary: No rashes Neuro: Normal speech, normal affect Vitals reviewed Assessment: Progressive right lung mass with suspected bony mets, liver mets Deconditioning/debility History of COPD previously on home O2 Neuropathy Elevated lactate Hyponatremia-mild Plan: Progressive right lung mass with suspected bony mets, liver mets Case discussed with pulmonology Will plan for liver biopsy today Path reports on previous bronchoscopy with lavage and CT-guided biopsy of the lung were inconclusive for malignancy At this point in time patient/family is amendable to biopsy and further aggressive care Deconditioning/debility PT consult History of COPD previously on home O2 Supplemental oxygen as needed, nebulizer treatments as needed Neuropathy Continue home medications when verified Elevated lactate [id number] Continue IV fluids, repeat chemistry in the morning No clear sign of infectious process at this time. DVT PPX: Lovenox Code status: Full Discharge Plan: Home Plan to discharge in: Greater than 2 days Time Spent Managing Pts Care (In Minutes): 35
[2024-03-27] MEDS: MIDAZOLAM HCL 2 MG/2 ML INJ ONE (10:36)
[2024-03-27] MEDS: FENTANYL CITR 100 MCG/2 ML ONE (10:37)
[2024-03-27 11:37] LABS: Differential Total Cells Count 100
[2024-03-27 11:38] LABS: Anisocytosis 1+; Atypical Lymphocytes 1 %; Band Neutrophils 1 % (0-1); Blood Morphology Comment NOTED (NOT SEEN); Lymphocytes 3 % (15-42); Metamyelocytes 1 % (0-0); Monocytes 11 % (0-10); Myelocytes 2 % (0-0); Ovalocytes SLIGHT; Platelet Estimate ADEQ; Segmented Neutrophils 81 % (40-80)
--- NOTE | 2024-03-27 12:30 | RAD REPORT ---
EXAMINATION: Liver Biopsy Perc CT INDICATION: Liver masses/Mets Pre-procedure diagnosis: Multiple liver masses Post-procedure diagnosis: Same as above. COMPLICATIONS: No immediate complications. PROCEDURE DETAILS: Consent: Informed consent for the procedure was obtained following discussion of the risks, benefits and alternatives with the patient. Time-out was performed prior to the procedure. Sedation: Moderate sedation (conscious sedation) Administered by: Nurse, or other independent traine d observer, with level of consciousness and vital signs continuously monitored. Total sedation administered: 1 mL Versed and 50 mcg Fentanyl. Total intra-service sedation time: 45 minutes. Biopsy: The area was prepped and draped in the usual sterile fashion. Initial scanning revealed numer ous hepatic masses varying size.. Local anesthesia was administered. Under CT guidance, an 18 gauge biopsy needle was advanced to the target and biopsy was performed. Number of specimens/passes: 4-5 Additional sampling description: None. Preliminary assessment of sample adequacy: Not applicable. The biopsy needle was removed and a sterile dressing was applied. Post-biopsy imaging findings: No immediate complications seen. Estimated blood loss: Less than 10 mL. IMPRESSION: Technically successful CT-guided biopsy of numerous liver masses.
[2024-03-28 06:47] LABS: Absolute Lymphocytes (CBC) 0.4 K/uL (0.7-4.9); Absolute Monocytes 0.7 K/uL (0.1-1.3); Absolute Neutrophil 11.1 K/uL (1.8-8.0); Basophils % 0.3 % (0-1.3); Eosinophils % 0.1 % (0-4.4); Hematocrit 28.9 % (39.6-49.0); Hemoglobin 9.9 g/dL (13.6-17.9); Lymphocytes % 3.5 % (15.3-44.8); MCH 30.6 pg (27.0-35.0); MCHC 34.3 g/dL (32.0-36.0); MCV 89.2 fL (80-100); MPV 8.2 fL (7.6-11.3); Neutrophils % 90.1 % (41.7-73.7); Nucleated Red Blood Cells % 0.1 % (0-0); Platelets 201 thou/uL (152-406); RBC Red Blood Cell Count 3.24 M/uL (4.33-5.43); Red Cell Distribution Width 17.6 % (12.1-15.2)
[2024-03-28 07:04] LABS: Albumin 1.9 g/dL (3.4-5.0); Albumin/Globulin Ratio 0.6 (1.1-1.8); Anion Gap 12.5 mEq/L (5.0-15.0); Globulin 3.2 g/dL (2.3-3.5); Potassium 3.5 mEq/L (3.5-5.1); Protein, Total 5.1 g/dL (6.4-8.2)
[2024-03-28] MEDS: PNEUMOCOCCAL VACCINE 0.5 ML IMVAC ONE (09:00)
[2024-03-28] MEDS: POTASSIUM 25 MEQ EFFERV TAB PO ONE (09:02)
--- NOTE | 2024-03-28 10:16 | P.PN ---
Date of Service: 03/28/24 Subjective: Status post successful liver biopsy yesterday No acute events overnight ROS: 10 point ROS as noted above, otherwise negative Physical exam GEN: Alert, periodically confused, NAD HEENT: Normal conjunctiva, sclera anicteric CV: Regular rate and rhythm, no edema Pulm: Nonlabored respirations on room air ABD: Soft, nontender, nondistended MSK: No joint tenderness Integumentary: No rashes Neuro: Normal speech, normal affect Vitals reviewed Assessment: Progressive right lung mass with suspected bony mets, liver mets Deconditioning/debility History of COPD previously on home O2 Neuropathy Elevated lactate Hyponatremia-mild Plan: Progressive right lung mass with suspected bony mets, liver mets Case discussed with pulmonology Liver biopsy completed 03/27, awaiting path results Path reports on previous bronchoscopy with lavage and CT-guided biopsy of the lung were inconclusive for malignancy At this point in time patient/family is amendable to biopsy and further aggressive care Deconditioning/debility PT consult Likely to require SNF at discharge History of COPD previously on home O2 Supplemental oxygen as needed, nebulizer treatments as needed Neuropathy Continue home medications when verified Elevated lactate [id number] No clear sign of infectious process at this time. DVT PPX: Lovenox Code status: Full Discharge Plan: Home Plan to discharge in: Greater than 2 days Time Spent Managing Pts Care (In Minutes): 35
[2024-03-29 06:44] LABS: Absolute Lymphocytes (CBC) 0.6 K/uL (0.7-4.9); Absolute Monocytes 1.1 K/uL (0.1-1.3); Absolute Neutrophil 12.2 K/uL (1.8-8.0); Basophils % 0.3 % (0-1.3); Eosinophils % 0.1 % (0-4.4); Hematocrit 29.1 % (39.6-49.0); Hemoglobin 9.8 g/dL (13.6-17.9); Lymphocytes % 4.5 % (15.3-44.8); MCH 30.2 pg (27.0-35.0); MCHC 33.7 g/dL (32.0-36.0); MCV 89.5 fL (80-100); MPV 8.5 fL (7.6-11.3); Monocytes % 8.1 % (3.3-12.3); Nucleated Red Blood Cells % 0.1 % (0-0); Platelets 221 thou/uL (152-406); RBC Red Blood Cell Count 3.25 M/uL (4.33-5.43); Red Cell Distribution Width 17.6 % (12.1-15.2)
[2024-03-29 07:12] LABS: Albumin/Globulin Ratio 0.7 (1.1-1.8); Anion Gap 10.1 mEq/L (5.0-15.0); Bilirubin Total 0.8 mg/dL (0.2-1.0); Potassium 4.1 mEq/L (3.5-5.1)
[2024-03-29 08:52] LABS: Band Neutrophils 3 % (0-1); Differential Total Cells Count 100; Lymphocytes 6 % (15-42); Monocytes 16 % (0-10); Segmented Neutrophils 75 % (40-80); Toxic Granulation 1+
[2024-03-29 08:53] LABS: Blood Morphology Comment NOT SEEN (NOT SEEN); Platelet Estimate ADEQ; Platelets, Giant PRESENT
--- NOTE | 2024-03-29 09:21 | P.PN ---
Date of Service: 03/29/24 Subjective: Status post successful liver biopsy No acute events overnight Awaiting SNF ROS: 10 point ROS as noted above, otherwise negative Physical exam GEN: Alert, periodically confused, NAD HEENT: Normal conjunctiva, sclera anicteric CV: Regular rate and rhythm, no edema Pulm: Nonlabored respirations on room air ABD: Soft, nontender, nondistended MSK: No joint tenderness Integumentary: No rashes Neuro: Normal speech, normal affect Vitals reviewed Assessment: Progressive right lung mass with suspected bony mets, liver mets Deconditioning/debility History of COPD previously on home O2 Neuropathy Elevated lactate Hyponatremia-mild Plan: Progressive right lung mass with suspected bony mets, liver mets Case discussed with pulmonology Liver biopsy completed 03/27, awaiting path results Path reports on previous bronchoscopy with lavage and CT-guided biopsy of the lung were inconclusive for malignancy Deconditioning/debility PT consult Likely to require SNF at discharge History of COPD previously on home O2 Supplemental oxygen as needed, nebulizer treatments as needed Neuropathy Continue home medications when verified Elevated lactate [id number] No clear sign of infectious process at this time. DVT PPX: Lovenox Code status: Full Discharge Plan: Home Plan to discharge in: Greater than 2 days Time Spent Managing Pts Care (In Minutes): 35
[2024-03-30 00:10] VITALS: O2SAT 100
[2024-03-30] MEDS: HYDROCODONE/APAP 5/325 MG TAB PO PRN (02:18)
--- NOTE | 2024-03-30 09:41 | P.PN ---
Date of Service: 03/30/24 Subjective: Status post successful liver biopsy No acute events overnight Awaiting SNF ROS: 10 point ROS as noted above, otherwise negative Physical exam GEN: Alert, periodically confused, NAD HEENT: Normal conjunctiva, sclera anicteric CV: Regular rate and rhythm, no edema Pulm: Nonlabored respirations on room air ABD: Soft, nontender, nondistended MSK: No joint tenderness Integumentary: No rashes Neuro: Normal speech, normal affect Vitals reviewed Assessment: Progressive right lung mass with suspected bony mets, liver mets Deconditioning/debility History of COPD previously on home O2 Neuropathy Elevated lactate Hyponatremia-mild Plan: Progressive right lung mass with suspected bony mets, liver mets Case discussed with pulmonology Liver biopsy completed 03/27, awaiting path results Path reports on previous bronchoscopy with lavage and CT-guided biopsy of the lung were inconclusive for malignancy Patient/family unsure of treatment plan/how aggressive they will be regarding treatment Deconditioning/debility PT consult Likely to require SNF at discharge History of COPD previously on home O2 Supplemental oxygen as needed, nebulizer treatments as needed on prednisone, augmentin per pulm Neuropathy Continue home medications when verified Elevated lactate [id number] No clear sign of infectious process at this time. DVT PPX: Lovenox Code status: Full Discharge Plan: Home Plan to discharge in: Greater than 2 days Time Spent Managing Pts Care (In Minutes): 35
--- NOTE | 2024-03-30 13:57 | P.DS ---
Admission Date: 03/25/24 Discharge Date: 03/30/24 Disposition: TRANSFER TO SNF - REHAB Discharge Condition: FAIR Reason for Admission: Lung mass, weakness Brief History of Present Illness: 74-year-old male with history of COPD, neuropathy presents the emergency department with chief complaint of general weakness. He was recently in the hospital on 02/01/[address]-guided lung biopsy resulted in a small pneumothorax. He had not since followed up with pulmonology as instructed. Patient was evaluated in the emergency department his labs are significant for an elevated alk phos of 446 calcium 12.5 lactic acid 3.1 sodium 131 chloride 95 hemoglobin 12.[address] of the chest shows progressive perihilar mass on the right extending into the upper segment of the right lower lobe with more caudal and posterior satellite nodular peribronchovascular components. Findings are concerning for progressive malignancy, progressive mediastinal and right hilar adenopathy is also noted, new small bilateral layering pleural effusions. CT abdomen pelvis was also performed which showed innumerable hepatic parenchymal hypoattenuating lesions concerning for metastatic disease. Numerous osseous lytic and sclerotic lesions concerning for metastatic disease. Nonspecific fluid filling throughout segments of the distal small bowel which may relate to mild enteritis or diarrheal state. Patient made aware of progression of suspected mass to the right lung along with other findings, will need to be admitted to the hospital for further management. Hospital Course: Assessment: Progressive right lung mass with suspected bony mets, liver mets Deconditioning/debility History of COPD previously on home O2 Neuropathy Elevated lactate Hyponatremia-mild Patient presented to the hospital with chief complaint of generalized weakness. His labs were notable for a elevated alk phos, calcium 12.5. CT of the chest was obtained which showed a progressive perihilar mass on the right extending into the upper segment of the right lower lobe with more caudal and posterior satellite nodular Ded[place] bronchovascular components. Findings are concerning for progressive malignancy, progressive mediastinal and right hilar adenopathy is also noted, new small bilateral layering pleural effusions. CT of the abdomen pelvis was also performed which showed innumerable hepatic parenchymal hypoattenuating lesions concerning for metastatic disease. Numerous osseous lytic and sclerotic lesions concerning for metastatic disease. Nonspecific fluid filling throughout segments of the distal small bowel which may relate to mild enteritis or diarrheal state. Patient previously undergone bronchoscopy with lavage and CT-guided biopsy of the lung mass which were inconclusive for malignancy. Given these findings concerning for metastatic disease in the liver mass that are present it was elected to undergo a CT-guided liver biopsy which was performed on 03/27. Result s from pathology are currently still pending. During his hospital stay patient worked with physical therapy found to be quite weak, he was appropriate for SNF at discharge, SNF was approved and patient has been accepted to [facility] for further rehab. It is suspected that this patient has metastatic cancer of unknown origin, likely lung. Discussed this with patient and family as well as follow-up for the path reports, they may follow-up with PCP or pulmonology to obtain pathology reports although I do plan on reviewing the results and giving him a call when they are available. During hospitalization patient was also treated for mild COPD exacerbation with oral steroids and Augmentin, we will continue for 3 more days after discharge from hospital. Vital Signs/Physical Exam: Temp Pulse Resp BP Pulse Ox 97.7 F 107 H 18 124/65 96 03/30/24 04:00 03/30/24 04:00 03/30/24 04:00 03/30/24 04:00 03/30/24 04:00 General: Alert, In no apparent distress, Oriented x3, Cachectic HEENT: Atraumatic, PERRLA Neck: Supple, JVD not distended Respiratory: Clear to auscultation bilaterally, Normal air movement Cardiovascular: Regular rate/rhythm, Normal S1 S2 Integumentary: No rashes Neurological: Normal speech Laboratory Data at Discharge: WBC 14.00 thou/uL (4.3-10.9) H 03/29/24 06:27 Hgb 9.8 g/dL (13.6-17.9) L 03/29/24 06:27 Hct 29.1 % (39.6-49.0) L 03/29/24 06:27 Plt Count 221 thou/uL (152-406) 03/29/24 06:27 PT 12.6 SECONDS (9.4-12.5) H 03/27/24 07:36 INR 1.20 03/27/24 07:36 APTT 24.0 SECONDS (24.3-36.9) L 03/27/24 07:36 Sodium 135 mEq/L (136-145) L 03/29/24 06:27 Potassium 4.1 mEq/L (3.5-5.1) D 03/29/24 06:27 BUN 27 mg/dL (7-18) H 03/29/24 06:27 Creatinine 0.59 mg/dL (0.70-1.30) L 03/29/24 06:27 Glucose 119 mg/dL (74-106) H 03/29/24 06:27 Magnesium 2.1 mg/dL (1.6-2.4) 03/25/24 09:55 Total Bilirubin 0.8 mg/dL (0.2-1.0) 03/29/24 06:27 AST 156 U/L (15-37) H 03/29/24 06:27 ALT 52 U/L (16-61) 03/29/24 06:27 Alkaline Phosphatase 448 U/L (45-117) H 03/29/24 06:27 Lipase 126 U/L (13-75) H 03/25/24 09:55 Home Medications: Gabapentin 800 mg PO TID 01/14/24 Tramadol HCl [Ultram] 50 mg PO PRN PRN 01/14/24 Trazodone HCl 100 mg PO BEDTIME 01/14/24 Acetaminophen [Tylenol*] 650 mg PO Q4HP PRN tab 03/30/24 Albuterol Neb [Proventil 0.083% Neb Soln] 2.5 mg NEB [id number] PRN amp 03/30/24 Amox/Clavulanate [Augmentin 875-125 Tab*] 875 mg PO BID 3 Days #6 tab 03/30/24 Ensure Enlive 237 ml PO BID can 03/30/24 Hydrocodone 5/APAP 325 [[place] 5/325*] 1 tab PO Q6H PRN tab 03/30/24 Ted [Ted*] 1 pkt PO BID 03/30/24 predniSONE [Deltasone*] 10 mg PO BID 3 Days #6 tab 03/30/24 New Medications: Amox/Clavulanate [Augmentin 875-125 Tab*] 875 mg PO BID 3 Days #6 tab predniSONE [Deltasone*] 10 mg PO BID 3 Days #6 tab Physician Discharge Instructions: Patient presented to the hospital with chief complaint of generalized weakness. His labs were notable for a elevated alk phos, calcium 12.5. CT of the chest was obtained which showed a progressive perihilar mass on the right extending into the upper segment of the right lower lobe with more caudal and posterior satellite nodular [place] bronchovascular components. Findings are concerning for progressive malignancy, progressive mediastinal and right hilar adenopathy is also noted, new small bilateral layering pleural effusions. CT of the abdomen pelvis was also performed which showed innumerable hepatic parenchymal hypoattenuating lesions concerning for metastatic disease. Numerous osseous lytic and sclerotic lesions concerning for metastatic disease. Nonspecific fluid filling throughout segments of the distal small bowel which may relate to mild enteritis or diarrheal state. Patient previously undergone bronchoscopy with lavage and CT-guided biopsy of the lung mass which were inconclusive for malignancy. Given these findings concerning for metastatic disease in the liver mass that are present it was elected to undergo a CT-guided liver biopsy which was performed on 03/27. Results from pathology are currently still pending. During his hospital stay patient worked with physical therapy found to be quite weak, he was appropriate for SNF at discharge, SNF was approved and patient has been accepted to [facility] for further rehab. It is suspected that this patient has metastatic cancer of unknown origin, likely lung. Discussed this with patient and family as well as follow-up for the path reports, they may follow-up with PCP or pulmonology to obtain pathology reports although I do plan on reviewing the results and giving him a call when they are available. During hospitalization patient was also treated for mild COPD exacerbation with oral steroids and Augmentin, we will continue for 3 more days after discharge from hospital. Diet: Regular Activity: Fall precautions Followup: NONE,NONE [Primary Care Provider] - Time spent managing pt's care (in minutes): 40
[2024-03-30 15:16] VITALS: BMI 15.4
[2024-03-30 16:32] VITALS: BP 116/59; TEMP 98.3
== END 2024-03-30 18:45 | DRG 181 ==
LOC: ER 09:35 → ERHOLD 12:47 → 4TH 13:34
PROVIDERS: ADMIT Hospitalist; ATTEND Hospitalist
PROC: 0FB13ZX Excision of Right Lobe Liver, Percutaneous Approach, Diagnostic (ICD-10-PCS; principal; 2024-03-27)
DX: C34.11 Malignant neoplasm of upper lobe, right bronchus or lung (principal); C78.7 Secondary malignant neoplasm of liver and intrahepatic bile duct; J44.1 Chronic obstructive pulmonary disease with (acute) exacerbation; J91.0 Malignant pleural effusion; Z68.1 Body mass index [BMI] 19.9 or less, adult; R64 Cachexia; E87.1 Hypo-osmolality and hyponatremia; C79.52 Secondary malignant neoplasm of bone marrow; I10 Essential (primary) hypertension; E78.00 Pure hypercholesterolemia, unspecified; E86.0 Dehydration; G62.9 Polyneuropathy, unspecified; D72.825 Bandemia; E83.52 Hypercalcemia; R63.0 Anorexia; R59.0 Localized enlarged lymph nodes; Z11.52 Encounter for screening for COVID-19; Z79.52 Long term (current) use of systemic steroids; Z79.899 Other long term (current) drug therapy; Z95.1 Presence of aortocoronary bypass graft; Z87.891 Personal history of nicotine dependence
CPT/HCPCS: 36415; 47000; 70450; 71045; 71275; 74177; 80048; 80053; 80076; 82140; 83605; 83690; 83735; 83880; 84484; 85025; 85610; 85730; 87040; 87804; 87811; 88307; 93005; 96361; 96365; 96375; 97110; 97116; 97161; 97530; 99285; J1650; J2250; J2310; J2405; J2919; J3010; J3480; J7030; J7512; J7614; J7644; J7799; Q9967